=== PATIENT | female | born 1980 | race Caucasian/White ===

== ENCOUNTER 2017-01-29 08:35 | Inpatient (IN) | payer BC, SELFPAY ==
[~2017-01-29] VITALS: Ht 157.5 cm; Wt 85.2 kg
[2017-01-29] MEDS ORDERED: SENOKOT S TAB PO SCH (09:00)
[2017-01-29] MEDS ORDERED: ONDANSETRON 4MG/2ML VIAL (J2405) IV PRN (09:30)
[2017-01-29 11:10] VITALS: BP 127/75
[2017-01-29] MEDS ORDERED: MORPHINE 4 MG/ML 1ML SYRINGE IV ONE (11:30)
[2017-01-29] MEDS ORDERED: PANT40TA2 PO (11:34)
[2017-01-29] MEDS ORDERED: LEVO50TA45 PO (11:37)
[2017-01-29] MEDS ORDERED: FERR324T2 PO (11:37)
[2017-01-29] MEDS ORDERED: SUCR1TAB56 PO (11:37)
[2017-01-29] MEDS ORDERED: POTA0.15 IV (11:45)
[2017-01-29] MEDS ORDERED: HYDR1SYR IV (11:45)
[2017-01-29] MEDS ORDERED: TYLE325T5 PO (11:45)
[2017-01-29] MEDS ORDERED: LEVO1INJ27 IV (11:45)
[2017-01-29] MEDS ORDERED: OXYC1TAB23 PO (11:45)
[2017-01-29] MEDS ORDERED: [UNRECOGNIZED DRUG - CODE] IV (11:45)
[2017-01-29] MEDS ORDERED: NICO14DI20 TD (11:45)
[2017-01-29] MEDS ORDERED: COLA100C PO (11:45)
[2017-01-29 11:54] LABS: BASO % 0.2 % (0.0-1.0); EOS # 0.1 K/mm3 (0.0-0.50); EOS % 0.7 % (0.0-3.0); LARGE UNSTAINED CELL # 0.2 K/mm3 (0.0-0.4); LARGE UNSTAINED CELL % 2.4 % (0.0-4.0); LYMPH # 1.4 K/mm3 (1.5-4.5); LYMPH % 13.2 % (24.0-44.0); MEAN CORPUSCULAR HEMOGLOBIN 26.7 pg (27.0-33.0); MEAN CORPUSCULAR HGB CONC 30.8 g/dl (32.0-36.5); MEAN CORPUSCULAR VOLUME 86.6 fl (80.0-96.0); MONO # 0.5 K/mm3 (0.0-0.8); MONO % 5.8 % (0.0-5.0); NEUTROPHILS # 6.8 K/mm3 (1.8-7.7); NEUTROPHILS % 77.8 % (36.0-66.0); PLATELET COUNT, AUTOMATED 243 k/mm3 (150-450); RED CELL DISTRIBUTION WIDTH 16.4 % (11.5-14.5); WHITE BLOOD COUNT 8.7 K/mm3 (4.0-10.0)
[2017-01-29 12:00] LABS: INR 1.19
[2017-01-29] MEDS: GASTROGRAFIN SOLUTION 30ML PO ONE ×2 (12:00→12:05)
[2017-01-29] MEDS: cefTRIAXone SOD 1 GM in D5W MINI-BAG PLUS 50 ML IV SCH (12:05)
[2017-01-29] MEDS ORDERED: GASTROGRAFIN SOLUTION 30ML (Q9963) PO ONE (12:30)
[2017-01-29] MEDS ORDERED: BISACODYL 10 MG SUPP PR PRN (12:30)
[2017-01-29 12:31] LABS: ALBUMIN 1.6 GM/DL (3.2-5.2); ALBUMIN/GLOBULIN RATIO 0.41 (1.00-1.93); ALKALINE PHOSPHATASE 171 U/L (45-117); ALT/SGPT 19 U/L (12-78); ANION GAP 8 MEQ/L (8-16); AST/SGOT 19 U/L (15-37); BILIRUBIN,TOTAL 0.3 MG/DL (0.2-1.0); BLOOD UREA NITROGEN 3 MG/DL (7-18); CALCIUM LEVEL 7.7 MG/DL (8.5-10.1); CARBON DIOXIDE LEVEL 24 MEQ/L (21-32); CHLORIDE LEVEL 109 MEQ/L (98-107); CREATININE FOR GFR 0.53 MG/DL (0.55-1.02); GLOMERULAR FILTRATION RATE > 60.0 (>60); GLUCOSE, FASTING 91 MG/DL (70-105); POTASSIUM SERUM 3.8 MEQ/L (3.5-5.1); SODIUM LEVEL 141 MEQ/L (136-145); TOTAL PROTEIN 5.5 GM/DL (6.4-8.2)
[2017-01-29] MEDS ORDERED: GASTROGRAFIN SOLUTION 30ML PO ONE (13:00)
[2017-01-29 13:22] LABS: PERCENT SATURATION 3.9 % (13.2-37.4)
[2017-01-29] MEDS: SUCRALFATE 1 GM TAB PO SCH ×3 (13:38→20:55)
[2017-01-29] MEDS: NICOTINE 14 MG/24 HR TRANSDERMAL TD SCH (13:39)
[2017-01-29 14:00] VITALS: BP 121/67
[2017-01-29] MEDS: oxyCODONE 5MG TAB PO PRN ×2 (15:06→20:55)
[2017-01-29] MEDS ORDERED: KETOROLAC 30 MG/ML VIAL (J1885) IV ONE (16:00)
[2017-01-29] MEDS: MORPHINE 4 MG/ML 1ML SYRINGE IV PRN (18:10)
--- NOTE | 2017-01-29 19:37 | HPE ---
DATE OF ADMISSION: 01/29/2017 PRIMARY CARE PROVIDER: JANNETH Leonardo in [facility]. CHIEF COMPLAINT: The patient was transferred from [facility] for possible renal abscess and requirement for specialty care with urology and nephrology. PAST MEDICAL HISTORY: 1. History of obesity, status post gastric bypass surgery in 2009. 2. History of abdominal hernia repair. 3. History of peptic ulcer disease. 4. Kidney stones. 5. Recent influenza about 3 weeks ago. 6. Hypothyroidism. 7. Anemia. 9. Tobacco abuse. HISTORY OF PRESENT ILLNESS: This is a 36-year-old female who has been sick for the past 10 days, initially at home she started with right sided back pain and flank pain, which she attributed to her kidney stones and at home she did pass some small stones, along with some bleeding with urine. However, even after that, the pain did not get better, so she went to [facility]. She was admitted to the [facility] on 01/26/2017. On admission, the patient had a CT scan done and a urine culture sent. The CT scan showed the possibility of pyelonephritis and also chest x-ray done, which showed possibility of right middle lobe infiltrate versus atelectasis, so the patient was started on levofloxacin and doxycycline to cover for her kidneys, as well as lungs. Subsequently, the patient's urine culture came back as Escherichia (E) coli. However, the patient's symptoms did not resolve. The patient continued to have persistent hematuria, persistent pain and for the past 24 hours has been spiking high-grade temperatures. She had a repeat CT scan of the abdomen and pelvis done with contrast of the right kidney. Ultrasound was read as right kidney upper mid pole demonstrates a 2.8 x 2.4 cm solid central region with hyperechoic fluid in the peripheral region, consistent with a renal abscess, fungus ball versus less likely mass. CT scan of the abdomen with contrast was done on 01/28/2017. The preliminary report is read as right pyelonephritis, no hydronephrosis, non obstructing 4 mm left renal stone, no ascites, no free air or hepatomegaly. The patient, on admission, blood work showed WBC of 6.3, hemoglobin 9, platelets 219. UA showed positive nitrite, moderately positive leukocyte esterase, red blood cells too numerous, white blood cells 30 to 50. Urine culture grew E coli greater than 100,000 colony forming units. Basic metabolic panel (BMP) showed sodium 139, potassium 2.8, chloride 106, bicarbonate 22, BUN 24, creatinine 1.2, glucose 84. The patient was started on IV fluids and potassium replacement. On 01/28/2017, the patient's hemoglobin and hematocrit dropped to 7.6, so the patient received 2 units of blood transfusion. The patient also started spiking fever with a maximum temperature (t-max) of 101.6, so was transferred to our hospital for further investigation and management. On my interview, the patient continue to complain of right costovertebral angle pain and right flank pain. She also states that she does have a little bit of hematuria persisting. Denies any nausea or vomiting. Denies any diarrhea. Denies any chest pain, shortness of breath, cough or phlegm. She is being admitted to the hospitalist service for evaluation for a renal abscess, renal mass or renal infarct. PAST SURGICAL HISTORY: 1. Cholecystectomy. 2. Gastric bypass surgery. 3. Surgery for abdominal hernia. ALLERGIES: No known allergies. SOCIAL HISTORY: The patient smokes about a half of a pack per day. Occasionally drinks alcohol. No history of drug abuse. MEDICATIONS: On admission, as from [facility]: - IV Levaquin - doxycycline - IV fluids with potassium - Synthroid - pantoprazole 40 twice a day - sucralfate - nicotine patch REVIEW OF SYSTEMS: All 10-point review of systems are negative except those mentioned in the history of present illness. PHYSICAL EXAMINATION: VITAL SIGNS: Blood pressure 127/75, pulse 95, respiratory rate 18, pulse oximetry 95% on room air. GENERAL: The patient is awake, alert and oriented times three. Lying down in bed in no acute distress. HEENT: Normocephalic, atraumatic. Moist mucous membranes. Anicteric eyes. CHEST: Clear to auscultation. CARDIOVASCULAR: S1, S2 regular. No rub, murmur or gallop. ABDOMEN: Soft, mildly tender in the right flank. Costovertebral angle tenderness on the right. Bowel sounds present. EXTREMITIES: No edema. LABORATORY DATA: WBC 8.7, hemoglobin 8.2, platelets 243. Basic metabolic panel (BMP) is in progress. INR is 1.19. Blood culture, UA and urine culture have bee ordered. MRI of the abdomen with and without contrast has been ordered. ASSESSMENT AND PLAN: This is a 36-year-old female admitted for possible renal abscess. PLAN: 1. For possible renal abscess, we will continue the patient on ceftriaxone. We will send blood culture, urine culture. Last urine culture from 01/27/2017 from [facility] grew Escherichia (E) coli sensitive to ceftriaxone; however, we will also get MRI of the abdomen with and without contrast to evaluate for any mass with necrosis or any infarction with central necrosis or any fungal ball. Giving the findings of the MRI, we will consult urology if required. 2. History of morbid obesity with gastric bypass surgery, stable at this point. 3. History of peptic ulcer disease. We will continue with sucralfate and pantoprazole. 4. Hypothyroidism. We will continue with Synthroid. 5. History of kidney stones. Has nonobstructive 4 mm stone on the left. No issues at this point. 6. Acute on chronic anemia. We will check for iron, vitamin B12 and folate levels. We will monitor hemoglobin and hematocrit. 7. Deep vein thrombosis (DVT) prophylaxis. Thromboembolic compression stockings (TEDS) and sequential compression device (SCD). 8. Gastrointestinal prophylaxis has been ordered. MTDD
[2017-01-29] MEDS: PANTOPRAZOLE 40MG TAB (PROTONIX) PO SCH (20:55)
[2017-01-29] MEDS: SENOKOT S TAB PO SCH (20:55)
[2017-01-29 22:00] VITALS: BP 128/71
[2017-01-30] MEDS: MORPHINE 4 MG/ML 1ML SYRINGE IV PRN ×2 (00:05→05:58)
[2017-01-30] MEDS: oxyCODONE 5MG TAB PO PRN ×2 (03:10→08:55)
[2017-01-30] MEDS: LEVOTHYROXINE 0.05 MG TAB (50 MCG) PO SCH (05:58)
[2017-01-30 06:00] VITALS: BP 132/70
[2017-01-30 06:02] LABS: BASO % 0.1 % (0.0-1.0); EOS % 0.6 % (0.0-3.0); LARGE UNSTAINED CELL # 0.2 K/mm3 (0.0-0.4); LARGE UNSTAINED CELL % 2.5 % (0.0-4.0); LYMPH # 1.2 K/mm3 (1.5-4.5); LYMPH % 15.6 % (24.0-44.0); MEAN CORPUSCULAR HEMOGLOBIN 26.4 pg (27.0-33.0); MEAN CORPUSCULAR HGB CONC 31.2 g/dl (32.0-36.5); MEAN CORPUSCULAR VOLUME 84.7 fl (80.0-96.0); MONO # 0.5 K/mm3 (0.0-0.8); MONO % 6.2 % (0.0-5.0); NEUTROPHILS # 5.7 K/mm3 (1.8-7.7); PLATELET COUNT, AUTOMATED 273 k/mm3 (150-450); RED CELL DISTRIBUTION WIDTH 16.1 % (11.5-14.5); WHITE BLOOD COUNT 7.6 K/mm3 (4.0-10.0)
[2017-01-30 06:19] LABS: ANION GAP 8 MEQ/L (8-16); BLOOD UREA NITROGEN 5 MG/DL (7-18); CALCIUM LEVEL 7.7 MG/DL (8.5-10.1); CARBON DIOXIDE LEVEL 26 MEQ/L (21-32); CHLORIDE LEVEL 105 MEQ/L (98-107); CREATININE FOR GFR 0.56 MG/DL (0.55-1.02); GLOMERULAR FILTRATION RATE > 60.0 (>60); GLUCOSE, FASTING 88 MG/DL (70-105); POTASSIUM SERUM 3.8 MEQ/L (3.5-5.1); SODIUM LEVEL 139 MEQ/L (136-145)
[2017-01-30] MEDS: SUCRALFATE 1 GM TAB PO SCH ×4 (08:53→20:31)
[2017-01-30] MEDS: PANTOPRAZOLE 40MG TAB (PROTONIX) PO SCH ×2 (08:53→20:31)
[2017-01-30] MEDS: SENOKOT S TAB PO SCH ×2 (08:53→20:31)
[2017-01-30] MEDS: NICOTINE 14 MG/24 HR TRANSDERMAL TD SCH (08:54)
[2017-01-30] MEDS ORDERED: PANTOPRAZOLE 40MG TAB (PROTONIX) PO SCH (09:00)
[2017-01-30] MEDS ORDERED: NALBUPHINE HCL 10 MG/ML AMP (J2300) IV PRN (10:00)
[2017-01-30] MEDS ORDERED: diphenhydrAMINE INJ 50MG/ML VIAL (J1200) IV PRN (10:00)
[2017-01-30] MEDS ORDERED: NALOXONE INJ 0.4 MG/1 ML VIAL (J2310) IV PRN (10:00)
[2017-01-30] MEDS ORDERED: EPIDURAL/PCA KEYS XX PRN (10:00)
[2017-01-30] MEDS: MORPHINE PCA 1MG/ML 100ML CADD IV PRN (10:37)
[2017-01-30] MEDS: NS 1,000 ML IV SCH (10:37)
--- NOTE | 2017-01-30 10:57 | IPNPDOC ---
Subjective Date Seen The patient was seen on 01/30/17. Subjective Chief Complaint/HPI The patient is a 36-year-old female admitted with a reason for visit of Renal Abcess. Events since last encounter continues to have severe pain in the right CVA angle, had low grade fever overnight, no chest pain or shortness of breath, has right flank pain , no nausea or vomiting or diarrhea. Objective Physical Examination General Exam: Positive: Alert, No Acute Distress Eye Exam: Positive: Conjunctiva & lids normal, EOMI, PERRLA, Negative: Sclera icteric ENT Exam: Positive: Atraumatic, Mucous membr. moist/pink, Pharynx Normal Chest Exam: Positive: Clear to auscultation, Normal air movement Heart Exam: Positive: Normal S1, Normal S2, Rate Normal, Regular Rhythm, Negative: Murmurs, Rubs Abdomen Exam: Positive: Other (right CVA tenderness , ), Tenderness Extremity Exam: Positive: Normal pulses, Negative: Clubbing, Cyanosis, Edema Skin Exam: Positive: Nl turgor and temperature, Negative: Breakdown, Rash Assessment /Plan Problems (1) Renal abscess Status: Acute Problem Text: will continue the patient on ceftriaxone , urine culture from outside hospital grew e coli discussed with Dr Gonzalez he may be able to put in a drain / or aspirate it . He is going to review the CT scan and US from outside hospital; will consult ID. 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 (2) History of Sonia-en-Y gastric bypass Status: Chronic Problem Text: for morbid obesity in 2009 at [place] (3) Kidney stone on left side Status: Chronic (4) Hypothyroid Status: Chronic (5) Peptic ulcer disease Status: Chronic Problem Text: continue ppi and sucralfate Plan/VTE VTE Prophylaxis Ordered?: Yes VS, I&O, 24H, Luciobonkoby Vital Signs/I&O Vital Signs Date Time Temp Pulse Resp B/P Pulse Ox O2 Delivery O2 Flow Rate FiO2 01/30/17 09:25 18 Room Air 01/30/17 06:00 100.5 113 132/70 94 I&O- Last 24 Hours up to 6 AM 01/30/17 06:00 Intake Total 2260 ml Output Total 950 ml Balance 1310 ml Laboratory Data 24H LABS Laboratory Tests 2 01/29/17 11:42: Prothromb Time International Ratio 1.19, Prothrombin Time 15.2H 01/29/17 11:43: Blood Urea Nitrogen 3L, Creatinine 0.53L, Sodium Level 141, Potassium Level 3.8 , Chloride Level 109H, Carbon Dioxide Level 24, Calcium Level 7.7L, Aspartate Amino Transf (AST/SGOT) 19, Alanine Aminotransferase (ALT/SGPT) 19, Alkaline Phosphatase 171H, Total Bilirubin 0.3, Total Protein 5.5L, Albumin 1.6L, Albumin /Globulin Ratio 0.41L, Anion Gap 8, White Blood Count 8.7, Red Blood Count 3.09L , Hemoglobin 8.2L, Hematocrit 26.7L, Mean Corpuscular Volume 86.6, Mean Corpuscular Hemoglobin 26.7L, Mean Corpuscular Hemoglobin Concent 30.8L, Red Cell Distribution Width 16.4H, Platelet Count 243, Neutrophils (%) (Auto) 77.8H , Lymphocytes (%) (Auto) 13.2L, Monocytes (%) (Auto) 5.8H, Eosinophils (%) (Auto ) 0.7, Basophils (%) (Auto) 0.2, Neutrophils # (Auto) 6.8, Lymphocytes # (Auto) 1.4L, Monocytes # (Auto) 0.5, Eosinophils # (Auto) 0.1, Basophils # (Auto) 0.0, Glomerular Filtration Rate > 60.0, Large Unclassified Cells # 0.2, Large Unclassified Cells % 2.4 01/29/17 12:39: Ferritin 152, Iron Level 8L, Total Iron Binding Capacity 207L, Transferrin % Saturation 3.9L 01/29/17 13:32: Urine Amorphous Sediment , Urine Appearance CLEAR, Urine Color YELLOW, Urine pH 6.0, Urine Specific [place] 1.008, Urine Protein NEGATIVE, Urine Glucose (UA) NEGATIVE, Urine Ketones NEGATIVE, Urine Urobilinogen 0.2, Urine Bilirubin NEGATIVE, Urine Leukocyte Esterase TRACEH, Urine Bacteria (Auto) 1+H, Urine Blood 3+H, Urine Calcium Carbonate Cryst(Auto) , Urine Calcium Oxalate Cryst ( Auto) , Urine Calcium Phosphate Nicole (Auto) , Urine Cellular Casts , Urine Cystine Crystals , Urine Granular Casts (Auto) , Urine Hyaline Casts (Auto) 0, Urine Leucine Crystals , Urine Mucus (Auto) SMALL, Urine Nitrite NEGATIVE, Urine Oval Fat Bodies (Auto) , Urine RBC (Auto) TNTCH, Urine Renal Epithelial Cells , Urine Sperm (Auto) , Urine Squamous Epithelial Cells 4, Urine Transitional Epithelial Cells , Urine Trichomonas (Auto) , Urine Triple Phosphate Cryst (Auto) , Urine Tyrosine Crystals , Urine Uric Acid Crystals ( Auto) , Urine WBC (Auto) 21H, Urine Waxy Casts (Auto) , Urine Yeast-Like Cells ( Auto) 01/30/17 05:36: Anion Gap 8, White Blood Count 7.6, Red Blood Count 3.34L, Hemoglobin 8.8L, Hematocrit 28.3L, Mean Corpuscular Volume 84.7, Mean Corpuscular Hemoglobin 26.4L, Mean Corpuscular Hemoglobin Concent 31.2L, Red Cell Distribution Width 16.1H, Platelet Count 273, Neutrophils (%) (Auto) 75.0H, Lymphocytes (%) (Auto) 15.6L, Monocytes (%) (Auto) 6.2H, Eosinophils (%) (Auto) 0.6, Basophils (%) ( Auto) 0.1, Neutrophils # (Auto) 5.7, Lymphocytes # (Auto) 1.2L, Monocytes # ( Auto) 0.5, Eosinophils # (Auto) 0.0, Basophils # (Auto) 0.0, Blood Urea Nitrogen 5#L, Creatinine 0.56, Sodium Level 139, Potassium Level 3.8, Chloride Level 105, Carbon Dioxide Level 26, Calcium Level 7.7L, Glomerular Filtration Rate > 60.0, Large Unclassified Cells # 0.2, Large Unclassified Cells % 2.5 CBC/BMP Laboratory Tests 01/29/17 11:43 Calcium Level 7.7 L, Aspartate Amino Transf (AST/SGOT) 19, Alanine Aminotransferase (ALT/SGPT) 19, Alkaline Phosphatase 171 H, Total Bilirubin 0.3 , Total Protein 5.5 L, Albumin 1.6 L, Red Blood Count 3.09 L, Mean Corpuscular Volume 86.6, Mean Corpuscular Hemoglobin 26.7 L, Mean Corpuscular Hemoglobin Concent 30.8 L, Red Cell Distribution Width 16.4 H, Neutrophils (%) (Auto) 77.8 H, Lymphocytes (%) (Auto) 13.2 L, Monocytes (%) (Auto) 5.8 H, Eosinophils (%) ( Auto) 0.7, Basophils (%) (Auto) 0.2, Neutrophils # (Auto) 6.8, Lymphocytes # ( Auto) 1.4 L, Monocytes # (Auto) 0.5, Eosinophils # (Auto) 0.1, Basophils # (Auto ) 0.0 01/30/17 05:36 Calcium Level 7.7 L, Red Blood Count 3.34 L, Mean Corpuscular Volume 84.7, Mean Corpuscular Hemoglobin 26.4 L, Mean Corpuscular Hemoglobin Concent 31.2 L, Red Cell Distribution Width 16.1 H, Neutrophils (%) (Auto) 75.0 H, Lymphocytes (%) ( Auto) 15.6 L, Monocytes (%) (Auto) 6.2 H, Eosinophils (%) (Auto) 0.6, Basophils (%) (Auto) 0.1, Neutrophils # (Auto) 5.7, Lymphocytes # (Auto) 1.2 L, Monocytes # (Auto) 0.5, Eosinophils # (Auto) 0.0, Basophils # (Auto) 0.0 Microbiology Microbiology 01/29/17 Blood Culture, Received Pending 01/29/17 Urine Culture - Final, Complete JUSTEN ALBRIGHT MD Jan 30, 2017 10:57
[2017-01-30] MEDS: cefTRIAXone SOD 1 GM in D5W MINI-BAG PLUS 50 ML IV SCH ×4 (12:26→23:44)
[2017-01-30] MEDS: ACETAMINOPHEN 500 MG TAB PO PRN (13:36)
[2017-01-30 13:43] VITALS: BP 107/51
[2017-01-30 18:00] VITALS: BP 122/61
[2017-01-30 22:00] VITALS: BP 101/58
[2017-01-31 02:00] VITALS: BP 114/71
[2017-01-31 06:00] VITALS: BP 124/60
[2017-01-31] MEDS: ACETAMINOPHEN 500 MG TAB PO PRN ×2 (06:10→16:29)
[2017-01-31] MEDS: LEVOTHYROXINE 0.05 MG TAB (50 MCG) PO SCH (06:10)
[2017-01-31 06:18] LABS: BASO % 0.3 % (0.0-1.0); EOS # 0.1 K/mm3 (0.0-0.50); EOS % 1.1 % (0.0-3.0); LARGE UNSTAINED CELL # 0.1 K/mm3 (0.0-0.4); LARGE UNSTAINED CELL % 1.4 % (0.0-4.0); LYMPH # 1.4 K/mm3 (1.5-4.5); LYMPH % 16.6 % (24.0-44.0); MEAN CORPUSCULAR HEMOGLOBIN 26.5 pg (27.0-33.0); MEAN CORPUSCULAR VOLUME 85.4 fl (80.0-96.0); MONO # 0.4 K/mm3 (0.0-0.8); MONO % 5.1 % (0.0-5.0); NEUTROPHILS # 6.2 K/mm3 (1.8-7.7); NEUTROPHILS % 75.5 % (36.0-66.0); PLATELET COUNT, AUTOMATED 354 k/mm3 (150-450); RED CELL DISTRIBUTION WIDTH 16.1 % (11.5-14.5); WHITE BLOOD COUNT 8.2 K/mm3 (4.0-10.0)
[2017-01-31 06:29] LABS: ANION GAP 7 MEQ/L (8-16); BLOOD UREA NITROGEN 6 MG/DL (7-18); CALCIUM LEVEL 8.1 MG/DL (8.5-10.1); CARBON DIOXIDE LEVEL 29 MEQ/L (21-32); CHLORIDE LEVEL 105 MEQ/L (98-107); CREATININE FOR GFR 0.53 MG/DL (0.55-1.02); GLOMERULAR FILTRATION RATE > 60.0 (>60); GLUCOSE, FASTING 88 MG/DL (70-105); POTASSIUM SERUM 3.7 MEQ/L (3.5-5.1); SODIUM LEVEL 141 MEQ/L (136-145)
[2017-01-31] MEDS: SENOKOT S TAB PO SCH ×2 (09:00→20:30)
[2017-01-31] MEDS: PANTOPRAZOLE 40MG TAB (PROTONIX) PO SCH ×2 (09:00→20:30)
[2017-01-31] MEDS: SUCRALFATE 1 GM TAB PO SCH ×4 (09:00→20:30)
[2017-01-31] MEDS: NS 1,000 ML IV SCH ×2 (09:45→09:54)
[2017-01-31] MEDS: NICOTINE 14 MG/24 HR TRANSDERMAL TD SCH (09:55)
[2017-01-31] MEDS: MORPHINE PCA 1MG/ML 100ML CADD IV PRN (09:55)
[2017-01-31 10:00] VITALS: BP 103/51
--- NOTE | 2017-01-31 11:00 | IPNPDOC ---
Subjective Date Seen The patient was seen on 01/31/17. Subjective Chief Complaint/HPI The patient is a 36-year-old female admitted with a reason for visit of Renal Abcess. Events since last encounter pt seen and examined, was sitting in bed with mother at bedside, she was asking about the time of her procedure. she states she is still having right sided flank pain that is present all the time. no pain with urination, she states she never had pain with urination only dark colored urine.had a morning temp of 100.6 but it was skin temp Objective Physical Examination General Exam: Positive: Alert, No Acute Distress Eye Exam: Positive: Conjunctiva & lids normal, EOMI, PERRLA, Negative: Sclera icteric ENT Exam: Positive: Atraumatic, Mucous membr. moist/pink, Pharynx Normal Chest Exam: Positive: Clear to auscultation, Normal air movement Heart Exam: Positive: Normal S1, Normal S2, Rate Normal, Regular Rhythm, Negative: Murmurs, Rubs Abdomen Exam: Positive: Other (right CVA tenderness , ), Tenderness Extremity Exam: Positive: Normal pulses, Negative: Clubbing, Cyanosis, Edema Skin Exam: Positive: Nl turgor and temperature, Negative: Breakdown, Rash Assessment /Plan Problems (1) Renal abscess Status: Acute Problem Text: * continue the patient on ceftriaxone , * urine culture from outside hospital grew e coli, repeat culture here was negative * Dr Gonzalez will take pt for procedure later today * continue morphine pump for pain control * will continue to monitor CRP and ESR * temp only core. (2) History of Sonia-en-Y gastric bypass Status: Chronic Problem Text: * for morbid obesity * in 2009 at [place] * continue Carafate and protonix bid (3) Kidney stone on left side Status: Chronic (4) Hypothyroid Status: Chronic Problem Text: * continue Synthroid (5) Peptic ulcer disease Status: Chronic Problem Text: continue ppi and sucralfate Plan/VTE VTE Prophylaxis Ordered?: Yes VS, I&O, 24H, Fishbone Vital Signs/I&O Vital Signs Date Time Temp Pulse Resp B/P Pulse Ox O2 Delivery O2 Flow Rate FiO2 01/31/17 06:00 100.9 95 18 124/60 91 Room Air I&O- Last 24 Hours up to 6 AM 01/31/17 06:00 Intake Total 1398 ml Output Total 1350 ml Balance 48 ml Laboratory Data 24H LABS Laboratory Tests 2 01/31/17 05:52: Anion Gap 7L, White Blood Count 8.2, Red Blood Count 3.46L, Hemoglobin 9.2L, Hematocrit 29.6L, Mean Corpuscular Volume 85.4, Mean Corpuscular Hemoglobin 26.5L, Mean Corpuscular Hemoglobin Concent 31.0L, Red Cell Distribution Width 16.1H, Platelet Count 354, Neutrophils (%) (Auto) 75.5H, Lymphocytes (%) (Auto) 16.6L, Monocytes (%) (Auto) 5.1H, Eosinophils (%) (Auto) 1.1, Basophils (%) ( Auto) 0.3, Neutrophils # (Auto) 6.2, Lymphocytes # (Auto) 1.4L, Monocytes # ( Auto) 0.4, Eosinophils # (Auto) 0.1, Basophils # (Auto) 0.0, Blood Urea Nitrogen 6L, Creatinine 0.53L, Sodium Level 141, Potassium Level 3.7, Chloride Level 105, Carbon Dioxide Level 29, Calcium Level 8.1L, Glomerular Filtration Rate > 60.0, Large Unclassified Cells # 0.1, Large Unclassified Cells % 1.4 CBC/BMP Laboratory Tests 01/31/17 05:52 Calcium Level 8.1 L, Red Blood Count 3.46 L, Mean Corpuscular Volume 85.4, Mean Corpuscular Hemoglobin 26.5 L, Mean Corpuscular Hemoglobin Concent 31.0 L, Red Cell Distribution Width 16.1 H, Neutrophils (%) (Auto) 75.5 H, Lymphocytes (%) ( Auto) 16.6 L, Monocytes (%) (Auto) 5.1 H, Eosinophils (%) (Auto) 1.1, Basophils (%) (Auto) 0.3, Neutrophils # (Auto) 6.2, Lymphocytes # (Auto) 1.4 L, Monocytes # (Auto) 0.4, Eosinophils # (Auto) 0.1, Basophils # (Auto) 0.0 Microbiology Microbiology 01/29/17 Blood Culture - Preliminary, Resulted No growth after 24 hours . All specim... 01/29/17 Urine Culture - Final, Complete MIREYA BEASLEY DO Jan 31, 2017 11:00
[2017-01-31] MEDS: cefTRIAXone SOD 1 GM in D5W MINI-BAG PLUS 50 ML IV SCH (12:08)
[2017-01-31] MEDS ORDERED: ISOVUE-300 61% 50ML VIAL (Q9967) As Ordered ONE (12:46)
[2017-01-31] MEDS ORDERED: LIDOCAINE 2% MDV 20 ML VIAL As Ordered ONE (14:09)
[2017-01-31] MEDS ORDERED: SODIUM BICARBONATE 8.4% INJ 50MEQ 50 ML VIAL As Ordered ONE (14:10)
[2017-01-31] MEDS ORDERED: LIDOCAINE W/EPINEPHRINE 1% 20ML VIAL As Ordered ONE (14:13)
[2017-01-31 15:20] VITALS: BP 127/79
--- NOTE | 2017-01-31 16:38 | IPNPDOC ---
Text Note Date of Service The patient was seen on 01/31/17. NOTE Infectious Disease Progress Note Subjective: Ms. Lau is seen today sitting in bed comfortably and about to order dinner. She just returned from to have a drain placed for her multiple renal abscesses. She states that she is feeling very chilled right now and thinks that she may have a fever. 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 Objective: Vitals: Tmax: 100.9 Pulse: 95 RR: 18 BP: 127/79 Pulse Oximetry: 96 on room air Physical Exam: General: Awake, alert, oriented. Sitting comfortably in bed. HEENT: Normocephalic, Atraumatic, mucous membranes moist Cardiac: Regular rate and rhythm, no murmurs, no gallops Respiratory: Clear to Auscultation Bilaterally, no wheezes, no rhonchi Abdomen: Soft, mildly tender to palpation in right upper quadrant, no rigidity, no rebound Laboratory: WBC: 8.2 Hgb: 9.2 Hct: 29.6 Platelets: 354 Na: 141 K: 3.7 Cl: 105 CO2: 29 BUN: 6 Creatinine: 0.53 glucose: 88 Urine Culture from [facility]: E. Coli Urine Culture here: Negative Blood culture: negative at 24 hours Abscess gram stain: no organisms Abscess fungal smear and culture, bacterial anaerobic and aerobic cultures pending. Imaging: Outside CT scan from [facility] shows multiple renal abscesses and pyelonephritis Assessment/Plan 1: Right sided pyelonephritis and multiple renal abscesses: Drain placed today, will continue on ceftriaxone 1g Q12 IV pending culture and smear results from drainage. IgG, IgG subclasses, IgA, and IgM levels will be obtained to determine if there is an underlying immune deficiency that allowed the formation of multiple renal abscesses. Will also obtain HIV 1&2 antibodies to rule out immune deficiency. GME ATTESTATION GME ATTESTATION My preceptor for this patient encounter was physically present in the building during the encounter and was fully available. As needed, all aspects of the patient interview, examination, medical decision making process, and medical care plan development were reviewed and approved by the preceptor. Preceptor is aware and concurs with the plan as stated in the body of this note and will attest to such by his/her cosignature. HECTOR MACDONALD DO Jan 31, 2017 16:38
--- NOTE | 2017-01-31 17:10 | REPKIM ---
HISTORY: Patient presents with right sided pyelonephritis and multiple renal abscesses as documented by the recent CT study. The referring service has asked abscess(es) aspiration possible drainage catheter placement. PROCEDURE: 1. Ultrasound Right Kidney 2. Mid lateral renal abscess drainage catheter placement and sinogram 3. Lower pole renal abscess(es) aspiration INTERVENTIONALIST: Dr. Rigo Gonzalez MEDICATIONS: Local Lidocaine. Patient also used NOTE SPECIALIST for pain control CONTRAST: 10 mL Isovue 300 EBL: less than 5 mL FLUORO TIME: 1.4 minutes DEVICE USED: 8.5 F Gross Powers Catheter Lot# [id number] PROCEDURE: After the risks and benefits of the procedure were explained to the patient and all questions were answered, informed written consent was obtained. A timeout procedure was performed prior to the start of the procedure to confirm patient identity. The patient was placed in the prone position and the right flank prepped and draped in the usual sterile fashion. Ultrasound of the right kidney showed an abscess cavity of 3.8 cm in mid lateral aspect of the kidney. This also showed multiple small abscesses in the lower pole of the kidney. Lidocaine was administered into the subcutaneous and deep tissues for local anesthesia. Using ultrasound guidance, a 21-gauge Accustick needle was advanced to the targeted mid lateral abnormal fluid collection/cavity. An Accustick catheter was then introduced over a guidewire. Initial aspirate revealed purulent discharges consistent with an abscess. A sample of the fluid sent for c/s. Using this access, an 8.5-Tamazight Gross Powers drainage catheter was then advanced over a wire. Its distal loop was formed and locked in the abnormal fluid collection/cavity Approximately 10 mL of fluid was aspirated. Contrast was gently hand injected and images were obtained. This showed the drainage catheter in a satisfactory course and position. No evidence of contrast leak or fistulous communication identified with the adjacent collecting system. The drainage catheter was then secured to the skin using the Revolution device. The drainage catheter was flushed and connected to a gravity drainage bag. Under ultrasound guidance, the dominant lower pole abscesses were then accessed using an 18-gauge D and K interpriseseh centesis needle after local anesthetic. Approximately 4 mL of purulent discharge was manually removed. The centesis catheter was then removed. A sterile dressing was applied. The patient tolerated the procedure well with no immediate complications. This procedure was performed using ultrasound and fluoroscopy. Dr. Gonzalez was present. IMPRESSION: Right sided pyelonephritis complicated with multiple renal abscesses. Successful placement of 8.5F percutaneous drainage catheter into the 3.8cm mid lateral renal abscess as discussed above. Aspiration of lower pole smaller renal abscesses also performed. A sample of the purulent fluid sent for c/s. Continue supportive care and antibiotics. cc: MD Bret Shah DO Marylene J Duah, MD MTDD
[2017-01-31 18:00] VITALS: BP 116/62
[2017-01-31 18:43] LABS: IMMUNOGLOBULIN G 793 MG/DL (681-1648); IMMUNOGLOBULIN M 103 MG/DL (40-230)
[2017-01-31 22:00] VITALS: BP 112/58
[2017-02-01] MEDS: ACETAMINOPHEN 500 MG TAB PO PRN ×2 (00:14→06:31)
[2017-02-01] MEDS: NS 1,000 ML IV SCH ×2 (00:14→11:15)
[2017-02-01] MEDS: cefTRIAXone SOD 1 GM in D5W MINI-BAG PLUS 50 ML IV SCH ×2 (00:14→11:15)
[2017-02-01 06:00] VITALS: BP 123/77
[2017-02-01] MEDS: LEVOTHYROXINE 0.05 MG TAB (50 MCG) PO SCH (06:31)
[2017-02-01 07:21] LABS: ANION GAP 6 MEQ/L (8-16); BLOOD UREA NITROGEN 5 MG/DL (7-18); CALCIUM LEVEL 7.6 MG/DL (8.5-10.1); CARBON DIOXIDE LEVEL 30 MEQ/L (21-32); CHLORIDE LEVEL 104 MEQ/L (98-107); CREATININE FOR GFR 0.56 MG/DL (0.55-1.02); GLOMERULAR FILTRATION RATE > 60.0 (>60); GLUCOSE, FASTING 92 MG/DL (70-105); POTASSIUM SERUM 3.2 MEQ/L (3.5-5.1); SODIUM LEVEL 140 MEQ/L (136-145)
[2017-02-01] MEDS: MORPHINE PCA 1MG/ML 100ML CADD IV PRN (07:23)
[2017-02-01 07:31] LABS: BASO % 0.3 % (0.0-1.0); EOS % 0.3 % (0.0-3.0); LARGE UNSTAINED CELL % 1.1 % (0.0-4.0); LYMPH # 0.8 K/mm3 (1.5-4.5); LYMPH % 13.4 % (24.0-44.0); MEAN CORPUSCULAR HEMOGLOBIN 26.9 pg (27.0-33.0); MEAN CORPUSCULAR HGB CONC 31.6 g/dl (32.0-36.5); MONO % 5.6 % (0.0-5.0); NEUTROPHILS # 4.6 K/mm3 (1.8-7.7); NEUTROPHILS % 79.2 % (36.0-66.0); PLATELET COUNT, AUTOMATED 343 k/mm3 (150-450); RED CELL DISTRIBUTION WIDTH 15.9 % (11.5-14.5); WHITE BLOOD COUNT 5.8 K/mm3 (4.0-10.0)
[2017-02-01 07:32] LABS: LARGE UNSTAINED CELL # 0.1 K/mm3 (0.0-0.4); MONO # 0.3 K/mm3 (0.0-0.8)
[2017-02-01 08:24] LABS: ERYTHROCYTE SEDIMENTATION RATE 108 mm/hr (0-20)
[2017-02-01] MEDS: SUCRALFATE 1 GM TAB PO SCH ×4 (09:11→20:22)
[2017-02-01] MEDS: NICOTINE 14 MG/24 HR TRANSDERMAL TD SCH (09:11)
[2017-02-01] MEDS: PANTOPRAZOLE 40MG TAB (PROTONIX) PO SCH ×2 (09:11→20:22)
[2017-02-01] MEDS: SENOKOT S TAB PO SCH ×2 (09:11→20:22)
[2017-02-01 09:18] LABS: FOLATE 3.5 NG/ML (>5.4)
[2017-02-01 10:00] VITALS: BP 98/55
[2017-02-01] MEDS ORDERED: POTASSIUM CHLORIDE 10 MEQ SR TABLET PO ONE (11:00)
--- NOTE | 2017-02-01 11:34 | CR ---
DATE OF CONSULTATION: 01/31/2017 REQUESTING PHYSICIAN: Dr. Appiah for evaluation of renal abscess with urine culture positive for E-Coli. HISTORY OF PRESENT ILLNESS: Ms. Lau is a 36-year-old female with a history of morbid obesity status post gastric bypass in 2009, who initially got sick about 10 days prior to admission. She started with right-sided back pain, flank pain that she related to kidney stones. The patient had some hematuria but no dysuria. On 01/26/2017, the pain got worse. She went to [facility] and had a CT, which showed a possibility of pyelonephritis. She also had a chest x-ray which showed a possible right middle lobe infiltrate versus atelectasis. The patient initially was treated with levofloxacin as well as doxycycline for possible pneumonia. Urine culture was positive for Escherichia (E) coli. It was sensitive to levofloxacin, only resistant to ampicillin and Bactrim. The patient's symptoms did not resolve. She continued with fever, hematuria. She had a repeat CT scan of the abdomen and pelvis with contrast and an ultrasound, which showed a solid central lesion with hyperechoic fluid measuring 2.8 x 2.4 cm. There was a question of a fungus ball. There was a nonobstructing 4 mm left renal stone with no ascites. The patient's white count had been normal. Urinalysis had many white cells and urine culture was positive for E. coli. PAST MEDICAL HISTORY: Morbid obesity. History of peptic ulcer disease with bleeding ulcers at the gastric anastomosis. PAST SURGICAL HISTORY: Cholecystectomy. Gastric bypass. Multiple abdominal hernia repair. Surgery was done by Dr. Riki Bell in [place]. ALLERGIES: No known drug allergies. SOCIAL HISTORY: She smokes about a half pack a day. Drinks socially. No history of drug use. She is noncompliant with medications and vitamins. MEDICATIONS: - morphine [employer] pump - Benadryl 12.5 mg IV every 4 hours as needed - naloxone as needed - levothyroxine 0.05 mg by mouth daily - Protonix 40 mg by mouth twice a day - Senokot one tablet by mouth twice a day - Carafate 1 gram by mouth four times daily - Colace as needed - Rocephin 1 gram IV every 12 hours - nicotine patch daily LABS: White count is 8.2, hemoglobin 9.2, hematocrit 29.6, platelets 354, 75% neutrophils, 16% lymphocytes, 5% monocytes. Sodium 141, potassium 3.7, chloride 105, bicarbonate 29, BUN 6, creatinine 0.53, glucose 88, calcium 8.1, iron 8, TIBC 207, iron saturation 3.9%, ferritin 152, AST 19, ALT 19, alkaline phosphatase 171, CRP 11.5, albumin 1.6. Vitamin B12 and folate are pending. Urine culture 01/29/2017 was no growth. Blood culture was negative. Urinalysis had 21 white cells and many red cells. ON PHYSICAL EXAM, Obese female in no acute distress. Heart: Normal S1, S2. No murmurs, rubs, or gallops. Lungs: Are clear. No wheezes, rales, or rhonchi. Abdomen: Is soft, obese, nontender with right costovertebral angle tenderness (CVA) tenderness. Extremities: No clubbing, cyanosis, or edema. Skin: Has multiple tattoos but no rashes. Oropharynx is clear with no thrush. No lesions. Neurologic: Exam is normal. IMPRESSION: This is a 36-year-old female with 10-day history of right-sided flank pain with persistent fever and what seems like a renal abscess and a kidney stone. Her urine culture was positive for E. coli sensitive to levofloxacin and Rocephin. The patient has been on appropriate antibiotics for the past 5 days and has had persistent fever and severe pain. She also had a gastric bypass Sonia-en-Y surgery and has severe iron deficiency and hypogammaglobulinemia. Antibiotics are appropriate. The question is whether the patient needs the renal abscess drained if she has persistent fever and persistent pain. PLAN: Will discuss the case with Dr. Rigo Gonzalez, who was not available today. Dr. Appiah did call him and he reviewed the films before he recommends a CT-guided biopsy to rule out other possible etiologies, possible co-infection with other organism other than the E. coli that is not being covered. Once the patient is afebrile and stable, she could be switched back to levofloxacin 750 mg every 24 hours. Usually indications for renal abscess drainage would be if the site of the abscess is more than 5 cm then the abscess would need to be drained percutaneously. Otherwise, antibiotics should be adequate. But if patient has persistent fevers after 5 days of appropriate antibiotics in spite of appropriate treatment, the patient probably should have a percutaneous drainage as well.
[2017-02-01 14:00] VITALS: BP 124/60
[2017-02-01 14:45] LABS: HIV SCREEN CENTAUR NEGATIVE (NEGATIVE)
--- NOTE | 2017-02-01 15:08 | IPNPDOC ---
Subjective Date Seen The patient was seen on 02/01/17. Subjective Chief Complaint/HPI The patient is a 36-year-old female admitted with a reason for visit of Renal Abcess. Events since last encounter pt seen and examined, feels better but still using her morphine [employer], she had fever yesterday after procedure, no other events overnight Objective Physical Examination General Exam: Positive: Alert, No Acute Distress Eye Exam: Positive: Conjunctiva & lids normal, EOMI, PERRLA, Negative: Sclera icteric ENT Exam: Positive: Atraumatic, Mucous membr. moist/pink, Pharynx Normal Chest Exam: Positive: Clear to auscultation, Normal air movement Heart Exam: Positive: Normal S1, Normal S2, Rate Normal, Regular Rhythm, Negative: Murmurs, Rubs Abdomen Exam: Positive: Other (right CVA tenderness , ), Tenderness Extremity Exam: Positive: Normal pulses, Negative: Clubbing, Cyanosis, Edema Skin Exam: Positive: Nl turgor and temperature, Negative: Breakdown, Rash Assessment /Plan Problems (1) Renal abscess Status: Acute Problem Text: * continue the patient on ceftriaxone , * urine culture from outside hospital grew e coli, repeat culture here was negative * Dr Gonzalez took pt for drainage and aspiration of abscess, cultures pending * continue morphine pump for pain control * will continue to monitor CRP and ESR * temp only core * tmax was 101.3 yesterday (2) History of Sonia-en-Y gastric bypass Status: Chronic Problem Text: * for morbid obesity * in 2009 at [place] * continue Carafate and protonix bid (3) Kidney stone on left side Status: Chronic (4) Hypothyroid Status: Chronic Problem Text: * continue Synthroid (5) Peptic ulcer disease Status: Chronic Problem Text: continue ppi and sucralfate Plan/VTE VTE Prophylaxis Ordered?: Yes VS, I&O, 24H, Fishbone Vital Signs/I&O Vital Signs Date Time Temp Pulse Resp B/P Pulse Ox O2 Delivery O2 Flow Rate FiO2 02/01/17 10:00 97.2 77 17 98/55 92 Room Air I&O- Last 24 Hours up to 6 AM 02/01/17 06:00 Intake Total 2570 ml Output Total 1400 ml Balance 1170 ml Laboratory Data 24H LABS Laboratory Tests 2 01/31/17 16:37: HIV Antigen/Antibody Combo Qual NEGATIVE, Immunoglobulin A 369.0, Immunoglobulin G 793, Immunoglobulin M 103 02/01/17 06:47: Anion Gap 6L, White Blood Count 5.8, Red Blood Count 3.34L, Hemoglobin 9.0L, Hematocrit 28.4L, Mean Corpuscular Volume 85.0, Mean Corpuscular Hemoglobin 26.9L, Mean Corpuscular Hemoglobin Concent 31.6L, Red Cell Distribution Width 15.9H, Platelet Count 343, Neutrophils (%) (Auto) 79.2H, Lymphocytes (%) (Auto) 13.4L, Monocytes (%) (Auto) 5.6H, Eosinophils (%) (Auto) 0.3, Basophils (%) ( Auto) 0.3, Neutrophils # (Auto) 4.6, Lymphocytes # (Auto) 0.8L, Monocytes # ( Auto) 0.3, Eosinophils # (Auto) 0.0, Basophils # (Auto) 0.0, C-Reactive Protein , Quantitative 10.40H, Blood Urea Nitrogen 5L, Creatinine 0.56, Sodium Level 140 , Potassium Level 3.2L, Chloride Level 104, Carbon Dioxide Level 30, Calcium Level 7.6L, Erythrocyte Sedimentation Rate 108H, Glomerular Filtration Rate > 60.0, Large Unclassified Cells # 0.1, Large Unclassified Cells % 1.1 CBC/BMP Laboratory Tests 02/01/17 06:47 Calcium Level 7.6 L, Red Blood Count 3.34 L, Mean Corpuscular Volume 85.0, Mean Corpuscular Hemoglobin 26.9 L, Mean Corpuscular Hemoglobin Concent 31.6 L, Red Cell Distribution Width 15.9 H, Neutrophils (%) (Auto) 79.2 H, Lymphocytes (%) ( Auto) 13.4 L, Monocytes (%) (Auto) 5.6 H, Eosinophils (%) (Auto) 0.3, Basophils (%) (Auto) 0.3, Neutrophils # (Auto) 4.6, Lymphocytes # (Auto) 0.8 L, Monocytes # (Auto) 0.3, Eosinophils # (Auto) 0.0, Basophils # (Auto) 0.0 Microbiology Microbiology 01/31/17 Blood Culture, Received Pending 01/31/17 Blood Culture, Received Pending 01/29/17 Blood Culture - Preliminary, Resulted No Growth after 72 hours. All specime... 3/28/17 Fungal Smear, Received Pending 01/31/17 Fungal Culture, Received Pending 01/31/17 Urine Culture - Final, Complete 01/31/17 Anaerobic Culture, Received Pending 01/29/17 Urine Culture - Final, Complete 01/31/17 Gram Stain - Final, Resulted 01/31/17 Abscess Culture, Resulted Pending MIREYA BEASLEY DO Feb 01, 2017 15:08
[2017-02-01 18:00] VITALS: BP 115/69
[2017-02-01 22:00] VITALS: BP 120/69
[2017-02-02] VITALS (11 sets, daily range): BP systolic 93–126; BP diastolic 49–70
[2017-02-02] MEDS: cefTRIAXone SOD 1 GM in D5W MINI-BAG PLUS 50 ML IV SCH ×3 (00:22→23:31)
[2017-02-02] MEDS: ACETAMINOPHEN 500 MG TAB PO PRN (03:03)
[2017-02-02] MEDS ORDERED: IBUPROFEN 800 MG TAB PO PRN (04:15)
[2017-02-02] MEDS: NS 1,000 ML IV SCH ×2 (04:27→13:40)
[2017-02-02] MEDS: LEVOTHYROXINE 0.05 MG TAB (50 MCG) PO SCH (06:13)
[2017-02-02] MEDS: MORPHINE PCA 1MG/ML 100ML CADD IV PRN (06:13)
[2017-02-02] MEDS ORDERED: ASPIRIN 325 MG TAB PO ONE (07:00)
[2017-02-02 07:09] LABS: BASO % 0.4 % (0.0-1.0); EOS # 0.1 K/mm3 (0.0-0.50); EOS % 1.3 % (0.0-3.0); LARGE UNSTAINED CELL # 0.1 K/mm3 (0.0-0.4); LYMPH # 1.3 K/mm3 (1.5-4.5); MEAN CORPUSCULAR HEMOGLOBIN 26.1 pg (27.0-33.0); MEAN CORPUSCULAR HGB CONC 30.1 g/dl (32.0-36.5); MEAN CORPUSCULAR VOLUME 86.5 fl (80.0-96.0); MONO # 0.4 K/mm3 (0.0-0.8); MONO % 6.8 % (0.0-5.0); NEUTROPHILS # 4.4 K/mm3 (1.8-7.7); NEUTROPHILS % 69.5 % (36.0-66.0); PLATELET COUNT, AUTOMATED 381 k/mm3 (150-450); RED CELL DISTRIBUTION WIDTH 15.6 % (11.5-14.5); WHITE BLOOD COUNT 6.4 K/mm3 (4.0-10.0)
[2017-02-02 07:22] LABS: ANION GAP 7 MEQ/L (8-16); BLOOD UREA NITROGEN 4 MG/DL (7-18); CALCIUM LEVEL 7.5 MG/DL (8.5-10.1); CARBON DIOXIDE LEVEL 29 MEQ/L (21-32); CHLORIDE LEVEL 104 MEQ/L (98-107); CREATININE FOR GFR 0.54 MG/DL (0.55-1.02); GLOMERULAR FILTRATION RATE > 60.0 (>60); GLUCOSE, FASTING 102 MG/DL (70-105); POTASSIUM SERUM 3.2 MEQ/L (3.5-5.1); SODIUM LEVEL 140 MEQ/L (136-145)
[2017-02-02] MEDS ORDERED: VANCOMYCIN HCL 750 MG, VIAL MATE ADAPTER 1 EACH in D5W 250 ML IV SCH (07:30)
--- NOTE | 2017-02-02 08:28 | REP ---
PA and lateral chest: Comparisons 01/27/2017. There is minor discoid atelectasis inferiorly in the left lung. The lung ring are otherwise clear. Cardiac size is upper normal. The brent, mediastinum, and bony thorax are unremarkable. Impression: Minor discoid atelectasis inferiorly on the left, otherwise negative PA and lateral chest. Signed by Vasile Olson MD 02/02/2017 08:20 A
[2017-02-02] MEDS: SUCRALFATE 1 GM TAB PO SCH ×4 (08:55→20:38)
[2017-02-02] MEDS: NICOTINE 14 MG/24 HR TRANSDERMAL TD SCH (08:55)
[2017-02-02] MEDS: PANTOPRAZOLE 40MG TAB (PROTONIX) PO SCH ×2 (08:55→20:38)
[2017-02-02] MEDS: SENOKOT S TAB PO SCH ×2 (08:55→20:38)
[2017-02-02] MEDS: VANCOMYCIN HCL 1,000 MG, VIAL MATE ADAPTER 1 EACH in D5W 250 ML IV SCH ×2 (08:55→16:20)
--- NOTE | 2017-02-02 11:45 | PHACANCOPD ---
PHARMACY VANCOMYCIN DOSING Pt Demographics Demographics Patient Age:36 , Weight:89.900 , Gender: female Adjusted Body Weight Date: 02/02/17, Adjusted Body Weight: [66.02] Kg Events Past 24 Hours Events Past 24 Hours: YES: Fever, Pending Diagnostics Vancomycin Vancomycin indication: renal abscess Vancomycin Target Ranges: 10-20 mcg/ml Vancomycin Load Y/N: No Load Dose Date Time Vancomycin Load Dose: Date: Time: Vancomycin Dose Date: 02/02/17. Current Vancomycin Dose: [1g IV Q8H] Intermittent Dosing?: No Labs Labs Item Value Date Time White Blood Count 6.4 K/mm3 02/02/17 0657 White Blood Count 5.8 K/mm3 02/01/17 0647 White Blood Count 8.2 K/mm3 01/31/17 0552 Creatinine 0.54 MG/DL L 02/02/17 0657 Creatinine 0.56 MG/DL 02/01/17 0647 Creatinine 0.53 MG/DL L 01/31/17 0552 C-Reactive Protein, Quantitative 10.40 MG/DL H 02/01/17 0647 C-Reactive Protein, Quantitative 11.50 MG/DL H 01/30/17 0536 Erythrocyte Sedimentation Rate 108 mm/hr H 02/01/17 0647 Micro Microbiology 01/31/17 Blood Culture - Preliminary, Resulted No growth after 24 hours . All specim... 01/31/17 Blood Culture - Preliminary, Resulted No growth after 24 hours . All specim... 01/29/17 Blood Culture - Preliminary, Resulted No Growth after 72 hours. All specime... 01/31/17 Fungal Smear, Received Pending 01/31/17 Fungal Culture, Received Pending 01/31/17 Urine Culture - Final, Complete 01/31/17 Anaerobic Culture, Received Pending 01/29/17 Urine Culture - Final, Complete 01/31/17 Gram Stain - Final, Resulted 01/31/17 Abscess Culture, Resulted Pending Creatinine Clearance Date:02/02/17. Estimated Creatinine Clearance: [>100ml/min]. Pending Labs Vancomycin trough scheduled 02/03/17 @1600, prior to the 5th dose Assessment and Plan Maintaining Current Dose?: Yes Reason for dose change: No Dose Change Pharmacist Note Pharmacist Note Date: 02/02/17. Pharmacist note: Day #1 vancomycin therapy initiated at 1g IV Q8H for the treatment of a renal abscess - aiming for a goal trough of 10-20mcg/ ml. WBC is currently WNL, ESR and CRP are both elevated, and the patient remains febrile. A urine culture drawn 01/27/17 at [facility] grew e coli sensitive to levaquin and rocephin, resistant to ampicillin and bactrim. No PMH of MRSA or vanco use here at [facility]. Repeat urine culture has resulted negative. Blood and renal abscess cultures are pending. A vancomycin trough has been scheduled 02/02/17 @1600, prior to the 5th dose. We will continue to monitor and make adjustments as needed. CRISTI [facility]OWER [facility] Feb 02, 2017 11:44
[2017-02-02] MEDS ORDERED: POTASSIUM CHLORIDE 10 MEQ SR TABLET PO ONE (12:00)
--- NOTE | 2017-02-02 12:47 | IPNPDOC ---
Subjective Date Seen The patient was seen on 02/02/17. Subjective Chief Complaint/HPI The patient is a 36-year-old female admitted with a reason for visit of Renal Abcess. Events since last encounter pt seen and examined, had overnight fevers and chills, she was also hypoxic. now pt states she feels better, but still feel pain in her back worse on the right. Objective Physical Examination General Exam: Positive: Alert, No Acute Distress Eye Exam: Positive: Conjunctiva & lids normal, EOMI, PERRLA, Negative: Sclera icteric ENT Exam: Positive: Atraumatic, Mucous membr. moist/pink, Pharynx Normal Chest Exam: Positive: Clear to auscultation, Normal air movement Heart Exam: Positive: Normal S1, Normal S2, Rate Normal, Regular Rhythm, Negative: Murmurs, Rubs Abdomen Exam: Positive: Other (right CVA tenderness , ), Tenderness Extremity Exam: Positive: Normal pulses, Negative: Clubbing, Cyanosis, Edema Skin Exam: Positive: Nl turgor and temperature, Negative: Breakdown, Rash Assessment /Plan Problems (1) Fever Status: Acute (2) Renal abscess Status: Acute Problem Text: * continue the patient on ceftriaxone, will add vanco since pt continues to spike fevers * urine culture from outside hospital grew e coli, repeat culture here was negative * Dr Gonzalez took pt for drainage and aspiration of abscess, cultures pending * continue morphine pump for pain control * will continue to monitor CRP and ESR * tmax 103.1 (3) History of Sonia-en-Y gastric bypass Status: Chronic Problem Text: * for morbid obesity * in 2009 at [place] * continue Carafate and protonix bid (4) Kidney stone on left side Status: Chronic (5) Hypothyroid Status: Chronic Problem Text: * continue Synthroid (6) Peptic ulcer disease Status: Chronic Problem Text: continue ppi and sucralfate (7) Hypoxia Status: Acute Problem Text: * will order xray * order IS Plan/VTE VTE Prophylaxis Ordered?: Yes VS, I&O, 24H, Fishbone Vital Signs/I&O Vital Signs Date Time Temp Pulse Resp B/P Pulse Ox O2 Delivery O2 Flow Rate FiO2 02/02/17 10:00 96.5 62 18 122/63 98 Room Air 02/02/17 06:00 2.0 I&O- Last 24 Hours up to 6 AM 3/30/17 06:00 Intake Total 3240 ml Output Total 1260 ml Balance 1980 ml Laboratory Data 24H LABS Laboratory Tests 2 02/02/17 06:57: Anion Gap 7L, White Blood Count 6.4, Red Blood Count 3.40L, Hemoglobin 8.9L, Hematocrit 29.4L, Mean Corpuscular Volume 86.5, Mean Corpuscular Hemoglobin 26.1L, Mean Corpuscular Hemoglobin Concent 30.1L, Red Cell Distribution Width 15.6H, Platelet Count 381, Neutrophils (%) (Auto) 69.5H, Lymphocytes (%) (Auto) 20.0L, Monocytes (%) (Auto) 6.8H, Eosinophils (%) (Auto) 1.3, Basophils (%) ( Auto) 0.4, Neutrophils # (Auto) 4.4, Lymphocytes # (Auto) 1.3L, Monocytes # ( Auto) 0.4, Eosinophils # (Auto) 0.1, Basophils # (Auto) 0.0, Blood Urea Nitrogen 4L, Creatinine 0.54L, Sodium Level 140, Potassium Level 3.2L, Chloride Level 104, Carbon Dioxide Level 29, Calcium Level 7.5L, Glomerular Filtration Rate > 60.0, Lactic Acid Level 0.8, Large Unclassified Cells # 0.1, Large Unclassified Cells % 2.0 CBC/BMP Laboratory Tests 02/02/17 06:57 Calcium Level 7.5 L, Red Blood Count 3.40 L, Mean Corpuscular Volume 86.5, Mean Corpuscular Hemoglobin 26.1 L, Mean Corpuscular Hemoglobin Concent 30.1 L, Red Cell Distribution Width 15.6 H, Neutrophils (%) (Auto) 69.5 H, Lymphocytes (%) ( Auto) 20.0 L, Monocytes (%) (Auto) 6.8 H, Eosinophils (%) (Auto) 1.3, Basophils (%) (Auto) 0.4, Neutrophils # (Auto) 4.4, Lymphocytes # (Auto) 1.3 L, Monocytes # (Auto) 0.4, Eosinophils # (Auto) 0.1, Basophils # (Auto) 0.0 Microbiology Microbiology 01/31/17 Blood Culture - Preliminary, Resulted No growth after 24 hours . All specim... 01/31/17 Blood Culture - Preliminary, Resulted No growth after 24 hours . All specim... 01/29/17 Blood Culture - Preliminary, Resulted No Growth after 72 hours. All specime... 01/31/17 Fungal Smear, Received Pending 01/31/17 Fungal Culture, Received Pending 01/31/17 Urine Culture - Final, Complete 01/31/17 Anaerobic Culture, Received Pending 01/29/17 Urine Culture - Final, Complete 01/31/17 Gram Stain - Final, Resulted 01/31/17 Abscess Culture - Preliminary, Resulted Escherichia Coli MIREYA BEASLEY DO Feb 02, 2017 12:47
[2017-02-02 12:48] LABS: MAGNESIUM LEVEL 1.9 MG/DL (1.8-2.4)
[2017-02-03] VITALS (12 sets, daily range): BP systolic 94–144; BP diastolic 52–75
[2017-02-03] MEDS: VANCOMYCIN HCL 1,000 MG, VIAL MATE ADAPTER 1 EACH in D5W 250 ML IV SCH ×2 (00:53→09:45)
[2017-02-03] MEDS: NS 1,000 ML IV SCH ×2 (03:05→09:46)
[2017-02-03] MEDS: LEVOTHYROXINE 0.05 MG TAB (50 MCG) PO SCH (05:52)
[2017-02-03 06:57] LABS: BASO % 0.4 % (0.0-1.0); EOS # 0.1 K/mm3 (0.0-0.50); LARGE UNSTAINED CELL # 0.3 K/mm3 (0.0-0.4); LYMPH # 1.7 K/mm3 (1.5-4.5); LYMPH % 29.4 % (24.0-44.0); MEAN CORPUSCULAR HEMOGLOBIN 26.8 pg (27.0-33.0); MEAN CORPUSCULAR HGB CONC 31.1 g/dl (32.0-36.5); MEAN CORPUSCULAR VOLUME 86.2 fl (80.0-96.0); MONO # 0.4 K/mm3 (0.0-0.8); MONO % 7.8 % (0.0-5.0); NEUTROPHILS # 2.7 K/mm3 (1.8-7.7); NEUTROPHILS % 55.3 % (36.0-66.0); PLATELET COUNT, AUTOMATED 326 k/mm3 (150-450); RED CELL DISTRIBUTION WIDTH 15.9 % (11.5-14.5); WHITE BLOOD COUNT 4.9 K/mm3 (4.0-10.0)
[2017-02-03 07:14] LABS: ANION GAP 5 MEQ/L (8-16); BLOOD UREA NITROGEN 4 MG/DL (7-18); CALCIUM LEVEL 7.5 MG/DL (8.5-10.1); CARBON DIOXIDE LEVEL 29 MEQ/L (21-32); CHLORIDE LEVEL 106 MEQ/L (98-107); CREATININE FOR GFR 0.43 MG/DL (0.55-1.02); GLOMERULAR FILTRATION RATE > 60.0 (>60); GLUCOSE, FASTING 82 MG/DL (70-105); POTASSIUM SERUM 3.5 MEQ/L (3.5-5.1); SODIUM LEVEL 140 MEQ/L (136-145)
[2017-02-03 07:21] LABS: ERYTHROCYTE SEDIMENTATION RATE 89 mm/hr (0-20)
[2017-02-03] MEDS: MORPHINE PCA 1MG/ML 100ML CADD IV PRN (07:53)
[2017-02-03] MEDS: PANTOPRAZOLE 40MG TAB (PROTONIX) PO SCH ×2 (09:44→20:38)
[2017-02-03] MEDS: SENOKOT S TAB PO SCH ×2 (09:44→20:38)
[2017-02-03] MEDS: SUCRALFATE 1 GM TAB PO SCH ×4 (09:45→20:38)
[2017-02-03] MEDS: NICOTINE 14 MG/24 HR TRANSDERMAL TD SCH (09:46)
--- NOTE | 2017-02-03 12:05 | IPNPDOC ---
Subjective Date Seen The patient was seen on 02/03/17. Subjective Chief Complaint/HPI The patient is a 36-year-old female admitted with a reason for visit of Renal Abcess. Events since last encounter pt seen and examined, had low grade temp of 100.7 overnight. still having pain over her back, still using morphine pump Constitutional: Reports: Chills, Fever Genitourinary: Reports: Other Symptoms (flank pain) Objective Physical Examination General Exam: Positive: Alert, No Acute Distress Eye Exam: Positive: Conjunctiva & lids normal, EOMI, PERRLA, Negative: Sclera icteric ENT Exam: Positive: Atraumatic, Mucous membr. moist/pink, Pharynx Normal Chest Exam: Positive: Clear to auscultation, Normal air movement Heart Exam: Positive: Normal S1, Normal S2, Rate Normal, Regular Rhythm, Negative: Murmurs, Rubs Abdomen Exam: Positive: Other (right CVA tenderness , ), Tenderness Extremity Exam: Positive: Normal pulses, Negative: Clubbing, Cyanosis, Edema Skin Exam: Positive: Nl turgor and temperature, Negative: Breakdown, Rash Assessment /Plan Problems (1) Fever Status: Acute Problem Text: * abscess culture from 01/31 was positive for Ecoli sensitive to ceftriaxone which pt has been on * will d/c vanco (2) Renal abscess Status: Acute Problem Text: * continue the patient on ceftriaxone, * urine culture from outside hospital grew e coli, repeat culture here was negative * abscess was positive for ecoli sensitive to ceftriaxone * will d/c vanco * will continue to trend SED rate and CRP (3) History of Sonia-en-Y gastric bypass Status: Chronic Problem Text: * for morbid obesity * in 2009 at [place] * continue Carafate and protonix bid (4) Kidney stone on left side Status: Chronic (5) Hypothyroid Status: Chronic Problem Text: * continue Synthroid (6) Peptic ulcer disease Status: Chronic Problem Text: continue ppi and sucralfate (7) Hypoxia Status: Resolved Problem Text: * xray showed atelectasis * order IS (8) Anemia Status: Chronic Response to Treatment: Worse Problem Text: * pt came in with low Hg of 8.2 today it is 7.8 * will order iron studies * fecal occult blood * repeat H&H * tranfuse if continues to trend down or if symptomatic Plan/VTE VTE Prophylaxis Ordered?: Yes VS, [facility]O, [facility] Vital Signs Date Time Temp Pulse Resp B/P Pulse Ox O2 Delivery O2 Flow Rate FiO2 02/03/17 06:00 97.4 74 16 94/52 95 Nasal Cannula 2.0 I&O- Last 24 Hours up to 6 AM 02/03/17 05:59 Intake Total 3370 ml Output Total 1375 ml Balance 1995 ml Laboratory Data 24H LABS Laboratory Tests 2 02/03/17 06:32: Anion Gap 5L, White Blood Count 4.9, Red Blood Count 2.90L, Hemoglobin 7.8L, Hematocrit 25.0L, Mean Corpuscular Volume 86.2, Mean Corpuscular Hemoglobin 26.8L, Mean Corpuscular Hemoglobin Concent 31.1L, Red Cell Distribution Width 15.9H, Platelet Count 326, Neutrophils (%) (Auto) 55.3, Lymphocytes (%) (Auto) 29.4, Monocytes (%) (Auto) 7.8H, Eosinophils (%) (Auto) 2.0, Basophils (%) (Auto ) 0.4, Neutrophils # (Auto) 2.7, Lymphocytes # (Auto) 1.7, Monocytes # (Auto) 0.4, Eosinophils # (Auto) 0.1, Basophils # (Auto) 0.0, C-Reactive Protein, Quantitative 5.90H, Blood Urea Nitrogen 4L, Creatinine 0.43L, Sodium Level 140, Potassium Level 3.5, Chloride Level 106, Carbon Dioxide Level 29, Calcium Level 7.5L, Erythrocyte Sedimentation Rate 89H, Glomerular Filtration Rate > 60.0, Large Unclassified Cells # 0.3, Large Unclassified Cells % 5.0H CBC/BMP Laboratory Tests 02/03/17 06:32 Calcium Level 7.5 L, Red Blood Count 2.90 L, Mean Corpuscular Volume 86.2, Mean Corpuscular Hemoglobin 26.8 L, Mean Corpuscular Hemoglobin Concent 31.1 L, Red Cell Distribution Width 15.9 H, Neutrophils (%) (Auto) 55.3, Lymphocytes (%) ( Auto) 29.4, Monocytes (%) (Auto) 7.8 H, Eosinophils (%) (Auto) 2.0, Basophils (% ) (Auto) 0.4, Neutrophils # (Auto) 2.7, Lymphocytes # (Auto) 1.7, Monocytes # ( Auto) 0.4, Eosinophils # (Auto) 0.1, Basophils # (Auto) 0.0 Microbiology Microbiology 01/31/17 Blood Culture - Preliminary, Resulted No Growth after 48 hours. All Specime... 01/31/17 Blood Culture - Preliminary, Resulted No Growth after 48 hours. All Specime... 01/29/17 Blood Culture - Final, Complete NO GROWTH AFTER 5 DAYS 01/31/17 Fungal Smear, Received Pending 01/31/17 Fungal Culture, Received Pending 01/31/17 Urine Culture - Final, Complete 01/31/17 Anaerobic Culture - Final, Complete 01/29/17 Urine Culture - Final, Complete 01/31/17 Gram Stain - Final, Complete 01/31/17 Abscess Culture - Final, Complete Escherichia Coli MIREYA BEASLEY DO Feb 03, 2017 12:05
[2017-02-03] MEDS: cefTRIAXone SOD 1 GM in D5W MINI-BAG PLUS 50 ML IV SCH ×2 (12:42→23:31)
[2017-02-03 12:58] LABS: PERCENT SATURATION 3.6 % (13.2-37.4)
[2017-02-03] MEDS: ACETAMINOPHEN 500 MG TAB PO PRN (20:38)
[2017-02-04] VITALS (8 sets, daily range): BP systolic 100–136; BP diastolic 54–86
[2017-02-04 00:06] LABS: IgG SERUM (part of Subclasses) 835 mg/dL (700-1600); IgG Subclass 1 480 mg/dL (422-1292); IgG Subclass 2 156 mg/dL (117-747); IgG Subclass 3 163 mg/dL (41-129); IgG Subclass 4 4 mg/dL (1-291)
[2017-02-04] MEDS: LEVOTHYROXINE 0.05 MG TAB (50 MCG) PO SCH (05:30)
[2017-02-04 06:33] LABS: WHITE BLOOD COUNT 4.6 K/mm3 (4.0-10.0)
[2017-02-04 06:34] LABS: BASO % 1.2 % (0.0-1.0); EOS % 2.9 % (0.0-3.0); LYMPH % 31.8 % (24.0-44.0); MEAN CORPUSCULAR HEMOGLOBIN 27.2 pg (27.0-33.0); MEAN CORPUSCULAR HGB CONC 32.3 g/dl (32.0-36.5); MONO % 7.4 % (0.0-5.0); NEUTROPHILS % 52.6 % (36.0-66.0); PLATELET COUNT, AUTOMATED 346 k/mm3 (150-450); RED CELL DISTRIBUTION WIDTH 15.9 % (11.5-14.5)
[2017-02-04 06:35] LABS: BASO # 0.1 K/mm3 (0.0-0.2); EOS # 0.1 K/mm3 (0.0-0.50); LARGE UNSTAINED CELL # 0.2 K/mm3 (0.0-0.4); LYMPH # 1.5 K/mm3 (1.5-4.5); MONO # 0.3 K/mm3 (0.0-0.8); NEUTROPHILS # 2.4 K/mm3 (1.8-7.7)
[2017-02-04 06:39] LABS: ANION GAP 7 MEQ/L (8-16); BLOOD UREA NITROGEN 4 MG/DL (7-18); CALCIUM LEVEL 7.9 MG/DL (8.5-10.1); CARBON DIOXIDE LEVEL 30 MEQ/L (21-32); CHLORIDE LEVEL 106 MEQ/L (98-107); CREATININE FOR GFR 0.46 MG/DL (0.55-1.02); GLOMERULAR FILTRATION RATE > 60.0 (>60); GLUCOSE, FASTING 85 MG/DL (70-105); POTASSIUM SERUM 3.8 MEQ/L (3.5-5.1); SODIUM LEVEL 143 MEQ/L (136-145)
[2017-02-04] MEDS: NICOTINE 14 MG/24 HR TRANSDERMAL TD SCH (10:15)
[2017-02-04] MEDS: SUCRALFATE 1 GM TAB PO SCH ×4 (10:16→20:39)
[2017-02-04] MEDS: SENOKOT S TAB PO SCH ×2 (10:16→20:39)
[2017-02-04] MEDS: PANTOPRAZOLE 40MG TAB (PROTONIX) PO SCH ×2 (10:16→20:39)
--- NOTE | 2017-02-04 11:20 | ECHO ---
DATE OF PROCEDURE: 02/03/2017 REFERRING PHYSICIAN: Bret Johnson MD PATIENT LOCATION: Room 4222 REASON FOR ECHOCARDIOGRAM: Heart murmur. 2D MEASUREMENTS: IVS: 0.9 cm LV: 5.6 cm LVPW: 0.9 cm LA: 4.0 cm Aorta: 3.0 cm IVC: 2.0 cm DOPPLER MEASUREMENTS: Peak velocity across the aortic valve: 1.6 m/s Peak velocity across the LVOT: 1.0 m/s Peak gradient across the aortic valve: 10.6 mmHg Mean gradient across the aortic valve: 7 mmHg Mitral E: 1.2, Mitral A: 0.63, with a ratio of 1. Maximum tricuspid valve velocity: 2.1 m/s 2D COMMENTS: 1. Borderline enlarged left ventricle with normal left ventricular wall thickness and a normal global left ventricular systolic function estimated at 60% to 65%. 2. Borderline enlarged left atrium at 4.0 cm. Normal right atrium and right ventricle. 3. The atrial septum appeared to be normal without evidence of defect or shunt. 4. Normal aortic root. 5. Trace pericardial effusion noted on only posteriorly at the base of the left ventricle in limited views. 6. Minimally calcified aortic valve with normal leaflet excursion. Normal mitral valve, tricuspid valve and pulmonic valve. The proximal pulmonary artery branches also appeared to be normal. 7. The inferior vena cava was borderline enlarged. DOPPLER: It detects trace to mild mitral regurgitation, trace to mild tricuspid regurgitation, and trace pulmonic regurgitation. The calculated pulmonary artery systolic pressure was normal. IMPRESSION: 1. Normal global left ventricular systolic function with borderline enlarged left ventricle and normal left ventricular wall thickness. Left ventricular diastolic function was normal. 2. Borderline enlarged left atrium with trace to mild mitral regurgitation. 3. Aortic valve sclerosis with trace aortic regurgitation, but no significant aortic stenosis. 4. Trace to mild tricuspid regurgitation with a normal calculated pulmonary artery systolic pressure. 5. Trace pulmonic regurgitation. 6. Trace pericardial effusion noted only posteriorly at the base of the left ventricle in limited views.
[2017-02-04] MEDS: cefTRIAXone SOD 1 GM in D5W MINI-BAG PLUS 50 ML IV SCH ×2 (11:54→23:08)
--- NOTE | 2017-02-04 14:07 | IPNPDOC ---
Subjective Date Seen The patient was seen on 02/04/17. Subjective Chief Complaint/HPI The patient is a 36-year-old female admitted with a reason for visit of Renal Abcess. Events since last encounter pt seen and examined, doing well, no other events overnight Objective Physical Examination General Exam: Positive: Alert, No Acute Distress Eye Exam: Positive: Conjunctiva & lids normal, EOMI, PERRLA, Negative: Sclera icteric ENT Exam: Positive: Atraumatic, Mucous membr. moist/pink, Pharynx Normal Chest Exam: Positive: Clear to auscultation, Normal air movement Heart Exam: Positive: Murmurs, Normal S1, Normal S2, Rate Normal, Regular Rhythm, Negative: Rubs Abdomen Exam: Positive: Other (right CVA tenderness , ), Tenderness Extremity Exam: Positive: Normal pulses, Negative: Clubbing, Cyanosis, Edema Skin Exam: Positive: Nl turgor and temperature, Negative: Breakdown, Rash Assessment /Plan Problems (1) Fever Status: Resolved Problem Text: * abscess culture from 01/31 was positive for Ecoli sensitive to ceftriaxone which pt has been on since 01/29/17 (2) Renal abscess Status: Acute Problem Text: * continue the patient on ceftriaxone, * urine culture from outside hospital grew e coli, repeat culture here was negative * abscess was positive for ecoli sensitive to ceftriaxone * will start pt on long acting pain medication (3) History of Sonia-en-Y gastric bypass Status: Chronic Problem Text: * for morbid obesity * in 2009 at [place] * continue Carafate and protonix bid (4) Kidney stone on left side Status: Chronic (5) Hypothyroid Status: Chronic Problem Text: * continue Synthroid (6) Peptic ulcer disease Status: Chronic Problem Text: continue ppi and sucralfate (7) Hypoxia Status: Resolved Problem Text: * xray showed atelectasis * order IS (8) Anemia Status: Chronic Response to Treatment: Worse Problem Text: * pt came in with chronic anemia, likely went down due to dilutional effect * s/p 2 units of prbc (9) Systolic murmur Status: Acute Problem Text: * minimal aortic regur Plan/VTE VTE Prophylaxis Ordered?: Yes VS, I&O, 24H, Fishbone Vital Signs/I&O Vital Signs Date Time Temp Pulse Resp B/P Pulse Ox O2 Delivery O2 Flow Rate FiO2 02/04/17 10:00 98.5 89 18 136/74 98 Room Air 02/04/17 06:00 2.0 I&O- Last 24 Hours up to 6 AM 02/04/17 06:00 Intake Total 2690 ml Output Total 3750 ml Balance -1060 ml Laboratory Data 24H LABS Laboratory Tests 2 02/04/17 05:58: Anion Gap 7L, White Blood Count 4.6, Red Blood Count 3.77L, Hemoglobin 10.2#L, Hematocrit 31.7L, Mean Corpuscular Volume 84.0, Mean Corpuscular Hemoglobin 27.2 , Mean Corpuscular Hemoglobin Concent 32.3, Red Cell Distribution Width 15.9H, Platelet Count 346, Neutrophils (%) (Auto) 52.6, Lymphocytes (%) (Auto) 31.8, Monocytes (%) (Auto) 7.4H, Eosinophils (%) (Auto) 2.9, Basophils (%) (Auto) 1.2H , Neutrophils # (Auto) 2.4, Lymphocytes # (Auto) 1.5, Monocytes # (Auto) 0.3, Eosinophils # (Auto) 0.1, Basophils # (Auto) 0.1, Blood Urea Nitrogen 4L, Creatinine 0.46L, Sodium Level 143, Potassium Level 3.8, Chloride Level 106, Carbon Dioxide Level 30, Calcium Level 7.9L, Glomerular Filtration Rate > 60.0, Large Unclassified Cells # 0.2, Large Unclassified Cells % 4.0 CBC/BMP Laboratory Tests 02/04/17 05:58 Calcium Level 7.9 L, Red Blood Count 3.77 L, Mean Corpuscular Volume 84.0, Mean Corpuscular Hemoglobin 27.2, Mean Corpuscular Hemoglobin Concent 32.3, Red Cell Distribution Width 15.9 H, Neutrophils (%) (Auto) 52.6, Lymphocytes (%) (Auto) 31.8, Monocytes (%) (Auto) 7.4 H, Eosinophils (%) (Auto) 2.9, Basophils (%) ( Auto) 1.2 H, Neutrophils # (Auto) 2.4, Lymphocytes # (Auto) 1.5, Monocytes # ( Auto) 0.3, Eosinophils # (Auto) 0.1, Basophils # (Auto) 0.1 Microbiology Microbiology 01/31/17 Blood Culture - Preliminary, Resulted No Growth after 72 hours. All specime... 01/31/17 Blood Culture - Preliminary, Resulted No Growth after 72 hours. All specime... 01/29/17 Blood Culture - Final, Complete NO GROWTH AFTER 5 DAYS 01/31/17 Fungal Smear, Received Pending 01/31/17 Fungal Culture, Received Pending 02/03/17 Stool Occult Blood ([email or web address]) - Final, Complete 01/31/17 Urine Culture - Final, Complete 01/31/17 Anaerobic Culture - Final, Complete 01/29/17 Urine Culture - Final, Complete 01/31/17 Gram Stain - Final, Complete 01/31/17 Abscess Culture - Final, Complete Escherichia Coli MIREYA BEASLEY DO Feb 04, 2017 14:07
[2017-02-04] MEDS: PERCOCET 5MG/325MG TAB PO PRN ×2 (14:23→16:28)
[2017-02-04] MEDS: oxyCODONE 10 MG CR TAB PO SCH ×2 (14:26→20:40)
[2017-02-05] MEDS: LEVOTHYROXINE 0.05 MG TAB (50 MCG) PO SCH (04:45)
[2017-02-05] MEDS: PERCOCET 5MG/325MG TAB PO PRN ×4 (04:46→22:51)
[2017-02-05 06:00] VITALS: BP 128/77
[2017-02-05 06:06] LABS: BASO % 0.7 % (0.0-1.0); EOS # 0.1 K/mm3 (0.0-0.50); EOS % 2.5 % (0.0-3.0); LARGE UNSTAINED CELL # 0.1 K/mm3 (0.0-0.4); LARGE UNSTAINED CELL % 2.7 % (0.0-4.0); LYMPH # 1.5 K/mm3 (1.5-4.5); LYMPH % 29.3 % (24.0-44.0); MEAN CORPUSCULAR HEMOGLOBIN 25.8 pg (27.0-33.0); MEAN CORPUSCULAR HGB CONC 30.6 g/dl (32.0-36.5); MEAN CORPUSCULAR VOLUME 84.3 fl (80.0-96.0); MONO # 0.4 K/mm3 (0.0-0.8); MONO % 7.8 % (0.0-5.0); NEUTROPHILS # 2.8 K/mm3 (1.8-7.7); NEUTROPHILS % 57.1 % (36.0-66.0); PLATELET COUNT, AUTOMATED 375 k/mm3 (150-450); RED CELL DISTRIBUTION WIDTH 15.9 % (11.5-14.5); WHITE BLOOD COUNT 4.9 K/mm3 (4.0-10.0)
[2017-02-05 06:18] LABS: ANION GAP 7 MEQ/L (8-16); BLOOD UREA NITROGEN 4 MG/DL (7-18); CALCIUM LEVEL 7.7 MG/DL (8.5-10.1); CARBON DIOXIDE LEVEL 30 MEQ/L (21-32); CHLORIDE LEVEL 104 MEQ/L (98-107); CREATININE FOR GFR 0.48 MG/DL (0.55-1.02); GLOMERULAR FILTRATION RATE > 60.0 (>60); GLUCOSE, FASTING 89 MG/DL (70-105); POTASSIUM SERUM 3.4 MEQ/L (3.5-5.1); SODIUM LEVEL 141 MEQ/L (136-145)
[2017-02-05] MEDS: NICOTINE 14 MG/24 HR TRANSDERMAL TD SCH (10:13)
[2017-02-05] MEDS: PANTOPRAZOLE 40MG TAB (PROTONIX) PO SCH ×2 (10:14→20:56)
[2017-02-05] MEDS: SENOKOT S TAB PO SCH ×2 (10:14→20:56)
[2017-02-05] MEDS: oxyCODONE 10 MG CR TAB PO SCH ×2 (10:14→20:56)
[2017-02-05] MEDS: SUCRALFATE 1 GM TAB PO SCH ×4 (10:15→20:56)
[2017-02-05] MEDS ORDERED: POTASSIUM CHLORIDE 10 MEQ SR TABLET PO ONE (10:45)
--- NOTE | 2017-02-05 11:03 | IPNPDOC ---
Subjective Date Seen The patient was seen on 02/05/17. Subjective Chief Complaint/HPI The patient is a 36-year-old female admitted with a reason for visit of Renal Abcess. Events since last encounter pt seen and examined, pain is somewhat controlled with oral pain medication, still has pain when she moves, drain has no output, no overnight fevers, but pt is complaining of chills, no nausea or vomiting tolerating diet. Objective Physical Examination General Exam: Positive: Alert, No Acute Distress Eye Exam: Positive: Conjunctiva & lids normal, EOMI, PERRLA, Negative: Sclera icteric ENT Exam: Positive: Atraumatic, Mucous membr. moist/pink, Pharynx Normal Chest Exam: Positive: Clear to auscultation, Normal air movement Heart Exam: Positive: Murmurs, Normal S1, Normal S2, Rate Normal, Regular Rhythm, Negative: Rubs Abdomen Exam: Positive: Other (right CVA tenderness , drain placed on the right ), Tenderness Extremity Exam: Positive: Normal pulses, Negative: Clubbing, Cyanosis, Edema Skin Exam: Positive: Nl turgor and temperature, Negative: Breakdown, Rash Assessment /Plan Problems (1) Renal abscess Status: Acute Problem Text: * continue the patient on ceftriaxone, started on 01/29 Day number 8 today * urine culture from outside hospital grew e coli, repeat culture here was negative * abscess was positive for ecoli sensitive to ceftriaxone * right sided drain still in place no output since 02/01, will contact Dr Gonzalez tomorrow regarding removing drain prior to discharge (2) Anemia Status: Chronic Response to Treatment: Stable Problem Text: * iron is low will start pt on iron supplements * pt came in with chronic anemia, likely went down due to dilutional effect * s/p 2 units of prbc on 02/03 (3) Fever Status: Resolved Problem Text: * abscess culture from 01/31 was positive for Ecoli sensitive to ceftriaxone which pt has been on since 01/29/17 (4) History of Sonia-en-Y gastric bypass Status: Chronic Problem Text: * for morbid obesity * in 2009 at [place] * continue Carafate and protonix bid (5) Kidney stone on left side Status: Chronic (6) Hypothyroid Status: Chronic Problem Text: * continue Synthroid (7) Peptic ulcer disease Status: Chronic Problem Text: continue ppi and sucralfate (8) Hypoxia Status: Resolved Problem Text: * xray showed atelectasis * order IS (9) Systolic murmur Status: Acute Problem Text: * minimal aortic regur (10) Hypokalemia Status: Acute Problem Text: * will replace and recheck in am * will order mag level in am Plan/VTE VTE Prophylaxis Ordered?: Yes VS, I&O, 24H, Fishbone Vital Signs/I&O Vital Signs Date Time Temp Pulse Resp B/P Pulse Ox O2 Delivery O2 Flow Rate FiO2 02/05/17 10:14 16 02/05/17 06:00 98.2 71 128/77 92 Room Air 02/04/17 06:00 2.0 I&O- Last 24 Hours up to 6 AM 02/05/17 06:00 Intake Total 2690 ml Output Total 1850 ml Balance 840 ml Laboratory Data 24H LABS Laboratory Tests 2 02/05/17 05:46: Anion Gap 7L, White Blood Count 4.9, Red Blood Count 3.69L, Hemoglobin 9.5L, Hematocrit 31.1L, Mean Corpuscular Volume 84.3, Mean Corpuscular Hemoglobin 25.8L, Mean Corpuscular Hemoglobin Concent 30.6L, Red Cell Distribution Width 15.9H, Platelet Count 375, Neutrophils (%) (Auto) 57.1, Lymphocytes (%) (Auto) 29.3, Monocytes (%) (Auto) 7.8H, Eosinophils (%) (Auto) 2.5, Basophils (%) (Auto ) 0.7, Neutrophils # (Auto) 2.8, Lymphocytes # (Auto) 1.5, Monocytes # (Auto) 0.4, Eosinophils # (Auto) 0.1, Basophils # (Auto) 0.0, Blood Urea Nitrogen 4L, Creatinine 0.48L, Sodium Level 141, Potassium Level 3.4L, Chloride Level 104, Carbon Dioxide Level 30, Calcium Level 7.7L, Glomerular Filtration Rate > 60.0, Large Unclassified Cells # 0.1, Large Unclassified Cells % 2.7 CBC/BMP Laboratory Tests 02/05/17 05:46 Calcium Level 7.7 L, Red Blood Count 3.69 L, Mean Corpuscular Volume 84.3, Mean Corpuscular Hemoglobin 25.8 L, Mean Corpuscular Hemoglobin Concent 30.6 L, Red Cell Distribution Width 15.9 H, Neutrophils (%) (Auto) 57.1, Lymphocytes (%) ( Auto) 29.3, Monocytes (%) (Auto) 7.8 H, Eosinophils (%) (Auto) 2.5, Basophils (% ) (Auto) 0.7, Neutrophils # (Auto) 2.8, Lymphocytes # (Auto) 1.5, Monocytes # ( Auto) 0.4, Eosinophils # (Auto) 0.1, Basophils # (Auto) 0.0 Microbiology Microbiology 01/31/17 Blood Culture - Preliminary, Resulted No Growth after 72 hours. All specime... 01/31/17 Blood Culture - Preliminary, Resulted No Growth after 72 hours. All specime... 01/29/17 Blood Culture - Final, Complete NO GROWTH AFTER 5 DAYS 01/31/17 Fungal Smear, Received Pending 01/31/17 Fungal Culture, Received Pending 02/03/17 Stool Occult Blood ([email or web address]) - Final, Complete 01/31/17 Urine Culture - Final, Complete 01/31/17 Anaerobic Culture - Final, Complete 01/29/17 Urine Culture - Final, Complete 01/31/17 Gram Stain - Final, Complete 01/31/17 Abscess Culture - Final, Complete Escherichia Coli MIREYA BEASLEY DO Feb 05, 2017 11:03
[2017-02-05] MEDS: cefTRIAXone SOD 1 GM in D5W MINI-BAG PLUS 50 ML IV SCH ×2 (11:26→22:50)
[2017-02-05] MEDS: FERROUS SULFATE 325MG TAB PO SCH ×2 (11:26→20:56)
[2017-02-05 14:00] VITALS: BP 130/71
[2017-02-05 22:00] VITALS: BP 123/67
[2017-02-06] MEDS: LEVOTHYROXINE 0.05 MG TAB (50 MCG) PO SCH (05:23)
[2017-02-06] MEDS: PERCOCET 5MG/325MG TAB PO PRN ×3 (05:23→18:09)
[2017-02-06 05:55] LABS: MEAN CORPUSCULAR HEMOGLOBIN 25.8 pg (27.0-33.0); MEAN CORPUSCULAR VOLUME 85.8 fl (80.0-96.0); RED CELL DISTRIBUTION WIDTH 15.8 % (11.5-14.5); WHITE BLOOD COUNT 6.2 K/mm3 (4.0-10.0)
[2017-02-06 06:00] VITALS: BP 114/79
[2017-02-06 06:08] LABS: ALBUMIN 1.8 GM/DL (3.2-5.2); ALBUMIN/GLOBULIN RATIO 0.47 (1.00-1.93); ALKALINE PHOSPHATASE 115 U/L (45-117); ALT/SGPT 22 U/L (12-78); ANION GAP 6 MEQ/L (8-16); AST/SGOT 22 U/L (15-37); BILIRUBIN,TOTAL 0.2 MG/DL (0.2-1.0); BLOOD UREA NITROGEN 6 MG/DL (7-18); CALCIUM LEVEL 7.9 MG/DL (8.5-10.1); CARBON DIOXIDE LEVEL 31 MEQ/L (21-32); CHLORIDE LEVEL 106 MEQ/L (98-107); CREATININE FOR GFR 0.51 MG/DL (0.55-1.02); GLOMERULAR FILTRATION RATE > 60.0 (>60); GLUCOSE, FASTING 85 MG/DL (70-105); POTASSIUM SERUM 3.8 MEQ/L (3.5-5.1); SODIUM LEVEL 143 MEQ/L (136-145); TOTAL PROTEIN 5.6 GM/DL (6.4-8.2)
[2017-02-06] MEDS: NICOTINE 14 MG/24 HR TRANSDERMAL TD SCH (09:07)
[2017-02-06] MEDS: oxyCODONE 10 MG CR TAB PO SCH ×2 (09:08→20:08)
[2017-02-06] MEDS: SUCRALFATE 1 GM TAB PO SCH ×4 (09:08→20:08)
[2017-02-06] MEDS: FERROUS SULFATE 325MG TAB PO SCH ×2 (09:08→20:08)
[2017-02-06] MEDS: SENOKOT S TAB PO SCH ×2 (09:08→20:08)
[2017-02-06] MEDS: PANTOPRAZOLE 40MG TAB (PROTONIX) PO SCH ×2 (09:08→20:08)
[2017-02-06] MEDS: cefTRIAXone SOD 1 GM in D5W MINI-BAG PLUS 50 ML IV SCH (11:13)
[2017-02-06 14:00] VITALS: BP 117/70
[2017-02-06] MEDS ORDERED: MORPHINE 2 MG/ML 1ML SYRINGE IV ONE (14:45)
[2017-02-06] MEDS: LevoFLOXacin 750 MG TABLET PO SCH (16:29)
--- NOTE | 2017-02-06 19:03 | IPNPDOC ---
Subjective Date Seen The patient was seen on 02/06/17. Subjective Chief Complaint/HPI The patient is a 36-year-old female admitted with a reason for visit of Renal Abcess. Events since last encounter pt seen and examined, doing well, pain is somewhat controlled, no fevers or chills, no overnight events, no drainage from drain in back Objective Physical Examination General Exam: Positive: Alert, No Acute Distress Eye Exam: Positive: Conjunctiva & lids normal, EOMI, PERRLA, Negative: Sclera icteric ENT Exam: Positive: Atraumatic, Mucous membr. moist/pink, Pharynx Normal Chest Exam: Positive: Clear to auscultation, Normal air movement Heart Exam: Positive: Murmurs, Normal S1, Normal S2, Rate Normal, Regular Rhythm, Negative: Rubs Abdomen Exam: Positive: Other (right CVA tenderness , drain placed on the right ), Tenderness Extremity Exam: Positive: Normal pulses, Negative: Clubbing, Cyanosis, Edema Skin Exam: Positive: Nl turgor and temperature, Negative: Breakdown, Rash Assessment /Plan Problems (1) Renal abscess Status: Acute Problem Text: * ceftriaxone discontinued, started on Levaquin * urine culture from outside hospital grew e coli, repeat culture here was negative * abscess was positive for ecoli sensitive to Levaquin * drain will be removed by dr king today (2) Anemia Status: Chronic Response to Treatment: Stable Problem Text: * iron is low will start pt on iron supplements * pt came in with chronic anemia, likely went down due to dilutional effect * s/p 2 units of prbc on 02/03 (3) Fever Status: Resolved Problem Text: * abscess culture from 01/31 was positive for Ecoli sensitive to ceftriaxone which pt has been on since 01/29/17 (4) History of Sonia-en-Y gastric bypass Status: Chronic Problem Text: * for morbid obesity * in 2009 at [place] * continue Carafate and protonix bid (5) Kidney stone on left side Status: Chronic (6) Hypothyroid Status: Chronic Problem Text: * continue Synthroid (7) Peptic ulcer disease Status: Chronic Problem Text: continue ppi and sucralfate (8) Hypoxia Status: Resolved Problem Text: * xray showed atelectasis * order IS (9) Systolic murmur Status: Acute Problem Text: * minimal aortic regur (10) Hypokalemia Status: Resolved Plan/VTE VTE Prophylaxis Ordered?: Yes VS, I&O, 24H, Fishbone Vital Signs/I&O Vital Signs Date Time Temp Pulse Resp B/P Pulse Ox O2 Delivery O2 Flow Rate FiO2 02/06/17 18:48 16 02/06/17 14:00 99.0 58 117/70 97 Room Air 02/04/17 06:00 2.0 I&O- Last 24 Hours up to 6 AM 02/06/17 06:00 Intake Total 2520 ml Output Total 1350 ml Balance 1170 ml Laboratory Data 24H LABS Laboratory Tests 2 02/06/17 05:31: Blood Urea Nitrogen 6L, Creatinine 0.51L, Sodium Level 143, Potassium Level 3.8 , Chloride Level 106, Carbon Dioxide Level 31, Calcium Level 7.9L, Aspartate Amino Transf (AST/SGOT) 22, Alanine Aminotransferase (ALT/SGPT) 22, Alkaline Phosphatase 115, Total Bilirubin 0.2, Total Protein 5.6L, Albumin 1.8L, Albumin/ Globulin Ratio 0.47L, Anion Gap 6L, C-Reactive Protein, Quantitative 1.84H, Erythrocyte Sedimentation Rate 61H, Glomerular Filtration Rate > 60.0, Magnesium Level 2.0 CBC/BMP Laboratory Tests 02/06/17 05:31 Calcium Level 7.9 L, Aspartate Amino Transf (AST/SGOT) 22, Alanine Aminotransferase (ALT/SGPT) 22, Alkaline Phosphatase 115, Total Bilirubin 0.2, Total Protein 5.6 L, Albumin 1.8 L, Red Blood Count 3.79 L, Mean Corpuscular Volume 85.8, Mean Corpuscular Hemoglobin 25.8 L, Mean Corpuscular Hemoglobin Concent 30.0 L, Red Cell Distribution Width 15.8 H Microbiology Microbiology 01/31/17 Blood Culture - Final, Complete NO GROWTH AFTER 5 DAYS 01/31/17 Blood Culture - Final, Complete NO GROWTH AFTER 5 DAYS 01/29/17 Blood Culture - Final, Complete NO GROWTH AFTER 5 DAYS 01/31/17 Fungal Smear, Received Pending 01/31/17 Fungal Culture, Received Pending 02/03/17 Stool Occult Blood ([email or web address]) - Final, Complete 01/31/17 Urine Culture - Final, Complete 01/31/17 Anaerobic Culture - Final, Complete 01/29/17 Urine Culture - Final, Complete 01/31/17 Gram Stain - Final, Complete 01/31/17 Abscess Culture - Final, Complete Escherichia Coli MIREYA BEASLEY DO Feb 06, 2017 19:03
[2017-02-06 22:00] VITALS: BP 121/66
[2017-02-07] MEDS: PERCOCET 5MG/325MG TAB PO PRN (03:31)
[2017-02-07] MEDS: LEVOTHYROXINE 0.05 MG TAB (50 MCG) PO SCH (05:31)
[2017-02-07] MEDS: LevoFLOXacin 750 MG TABLET PO SCH (05:31)
[2017-02-07 06:00] VITALS: BP 113/54
[2017-02-07 07:02] LABS: MEAN CORPUSCULAR HEMOGLOBIN 26.4 pg (27.0-33.0); MEAN CORPUSCULAR HGB CONC 30.8 g/dl (32.0-36.5); MEAN CORPUSCULAR VOLUME 85.7 fl (80.0-96.0); RED CELL DISTRIBUTION WIDTH 15.9 % (11.5-14.5); WHITE BLOOD COUNT 5.5 K/mm3 (4.0-10.0)
[2017-02-07 07:28] LABS: ALBUMIN 1.8 GM/DL (3.2-5.2); ALBUMIN/GLOBULIN RATIO 0.47 (1.00-1.93); ALKALINE PHOSPHATASE 103 U/L (45-117); ALT/SGPT 19 U/L (12-78); ANION GAP 5 MEQ/L (8-16); AST/SGOT 21 U/L (15-37); BILIRUBIN,TOTAL 0.2 MG/DL (0.2-1.0); BLOOD UREA NITROGEN 5 MG/DL (7-18); CALCIUM LEVEL 8.2 MG/DL (8.5-10.1); CARBON DIOXIDE LEVEL 32 MEQ/L (21-32); CHLORIDE LEVEL 106 MEQ/L (98-107); CREATININE FOR GFR 0.55 MG/DL (0.55-1.02); GLOMERULAR FILTRATION RATE > 60.0 (>60); GLUCOSE, FASTING 82 MG/DL (70-105); POTASSIUM SERUM 3.9 MEQ/L (3.5-5.1); SODIUM LEVEL 143 MEQ/L (136-145); TOTAL PROTEIN 5.6 GM/DL (6.4-8.2)
[2017-02-07] MEDS: SENOKOT S TAB PO SCH (09:16)
[2017-02-07] MEDS: PANTOPRAZOLE 40MG TAB (PROTONIX) PO SCH (09:16)
[2017-02-07] MEDS: NICOTINE 14 MG/24 HR TRANSDERMAL TD SCH (09:16)
[2017-02-07] MEDS: FERROUS SULFATE 325MG TAB PO SCH (09:16)
[2017-02-07] MEDS: SUCRALFATE 1 GM TAB PO SCH (09:16)
[2017-02-07] MEDS: oxyCODONE 10 MG CR TAB PO SCH (09:17)
[2017-02-07] MEDS ORDERED: PERCOCET PO (10:21)
[2017-02-07] MEDS ORDERED: LEVA750T PO ×2 (10:21→13:28)
[2017-02-07] MEDS ORDERED: OXYC-299 PO ×2 (10:21→12:11)
[2017-02-07] MEDS ORDERED: OXYC1TAB23 PO (12:11)
--- NOTE | 2017-02-07 16:02 | DS.PDOC ---
Discharge Summary General Date of Admission Jan 29, 2017 at 11:10 Date of Discharge Feb 07, 2017 at 11:40 Attending Physician: KARRI CARLOS MD Specialist/Consultants Involve: Venus Monae MD Discharge Summary PROCEDURES PERFORMED DURING STAY: None. ADMITTING/DISCHARGE DIAGNOSES: 1. Renal abscess status post drain, and removal of drain. 2. History of obesity status post gastric bypass in 2009 3. History of peptic ulcer disease 4. Hypothyroidism 5. Tobacco abuse 6. History of nephrolithiasis COMPLICATIONS/CHIEF COMPLAINT: Renal Abcess. HISTORY OF PRESENT ILLNESS/HOSPITAL COURSE: . This is a 36-year-old female past medical history of nephrolithiasis who presents to [facility] on 4 right sided back/flank pain. Patient apparently has been sick with a past in a prior to admission and had believed that her pain was secondary to nephrolithiasis. Upon evaluation by a [facility], the patient was noted to have a possible renal abscess and was transferred to [facility] for urology evaluation. Patient had a urine culture was positive for Escherichia coli. Patient was also seen by Dr. Gonzalez interventional radiology and had a drainage catheter placed on 01/31, removed on 02/06. Patient had been on IV antibiotics for a total of 10 days on the hospital. The patient tolerated therapy well. I currently denies any complaints. States her pain is well-controlled on the OxyContin as well as the Percocet. Patient has been given one week this regimen, and is to follow-up with her primary care physician as well as Dr. Monae in 1-2 weeks. I have spoken to Dr. Monae, who wanted the patient to have a total of 20 days of antibiotics, as well as renal ultrasound to follow-up her treatment. I have spoken to the patient's primary care office who will be arranging the renal ultrasound to be done in 10 days. DISCHARGE MEDICATIONS: Please see below. ALLERGIES: Please see below. PHYSICAL EXAMINATION ON DISCHARGE: VITAL SIGNS: Please see below. General: No acute distress, laying comfortably in bed. HEENT: Moist mucous membranes. Neck: No JVD or lymphadenopathy Cardiac: RRR, No murmurs Pulm: Clear to auscultation b/l. No wheezing, rhonchi Abd: NT/ND + BS. No CVA tenderness. Ext: No edema or cyanosis LABORATORY DATA: Please see below. IMAGING: PROGNOSIS: Fair ACTIVITY: As tolerated. DIET: As tolerated DISCHARGE PLAN: Home DISPOSITION: 01 Home, Self-Care. DISCHARGE INSTRUCTIONS: 1. Follow-up with PCP and Dr. Monae in 1-2 weeks. Pt will have an additional 10 days levaquin. I have called the patient's primary care, who will be arranging for the patient to have a renal ultrasound in 10 days. DISCHARGE CONDITION: Stable. TIME SPENT ON DISCHARGE: Greater than 30 minutes. Vital Signs/I&Os Vital Signs Date Time Temp Pulse Resp B/P Pulse Ox O2 Delivery O2 Flow Rate FiO2 02/07/17 09:17 18 02/07/17 06:00 98.3 71 113/54 98 02/06/17 14:00 Room Air 02/04/17 06:00 2.0 I&O- Last 24 Hours up to 6 AM 02/07/17 05:59 Intake Total 2930 ml Output Total 650 ml Balance 2280 ml Laboratory Data Labs 24H Laboratory Tests 2 02/07/17 06:36: Blood Urea Nitrogen 5L, Creatinine 0.55, Sodium Level 143, Potassium Level 3.9, Chloride Level 106, Carbon Dioxide Level 32, Calcium Level 8.2L, Aspartate Amino Transf (AST/SGOT) 21, Alanine Aminotransferase (ALT/SGPT) 19, Alkaline Phosphatase 103, Total Bilirubin 0.2, Total Protein 5.6L, Albumin 1.8L, Albumin/ Globulin Ratio 0.47L, Anion Gap 5L, Glomerular Filtration Rate > 60.0, Magnesium Level 2.0 CBC/BMP Laboratory Tests 02/07/17 06:36 Calcium Level 8.2 L, Aspartate Amino Transf (AST/SGOT) 21, Alanine Aminotransferase (ALT/SGPT) 19, Alkaline Phosphatase 103, Total Bilirubin 0.2, Total Protein 5.6 L, Albumin 1.8 L, Red Blood Count 3.61 L, Mean Corpuscular Volume 85.7, Mean Corpuscular Hemoglobin 26.4 L, Mean Corpuscular Hemoglobin Concent 30.8 L, Red Cell Distribution Width 15.9 H Microbiology Microbiology 01/31/17 Blood Culture - Final, Complete NO GROWTH AFTER 5 DAYS 01/31/17 Blood Culture - Final, Complete NO GROWTH AFTER 5 DAYS 01/29/17 Blood Culture - Final, Complete NO GROWTH AFTER 5 DAYS 01/31/17 Fungal Smear, Received Pending 01/31/17 Fungal Culture, Received Pending 02/03/17 Stool Occult Blood ([email or web address]) - Final, Complete 01/31/17 Urine Culture - Final, Complete 01/31/17 Anaerobic Culture - Final, Complete 01/29/17 Urine Culture - Final, Complete 01/31/17 Gram Stain - Final, Complete 01/31/17 Abscess Culture - Final, Complete Escherichia Coli Discharge Medications Scheduled Docusate Sodium (Colace) 100 Mg Cap 100 MG PO BID (Reported) Ferrous Sulfate (Ferrous Sulfate) 324 Mg Tab 324 MG PO BID (Reported) HOME MED Levofloxacin Hemihydrate (Levaquin) 750 Mg Tab 750 MG PO DAILY Levothyroxine Sodium (Levoxyl) 50 Mcg Tab 50 MCG PO DAILY (Reported) HOME MED Nicotine (Nicotine 14MG Patch) 1 Patch Tdsy 1 PATCH TD DAILY (Reported) STARTED AT [facility] Oxycodone HCl (Oxycontin) 10 Mg Tab 10 MG PO BID Pantoprazole Sodium (Pantoprazole Sodium) 40 Mg Tab 40 MG PO BID (Reported) HOME MED Sucralfate (Sucralfate) 1 Gm Tab 1 GM PO QID (Reported) HOME MED Scheduled PRN Acetaminophen (Tylenol) 325 Mg Tab 650 MG PO Q6H PRN PRN PAIN / FEVER (Reported ) STARTED AT [facility] Oxycodone/Acetaminophen (Oxycodone/Acetaminophen 5-325 mg) 1 Tab Tab 1 TAB PO Q6HP PRN PRN pain Allergies Coded Allergies: No Known Allergies (Unverified , 01/29/17) KARRI CARLOS MD Feb 07, 2017 16:02
== END 2017-02-07 11:40 | disposition home or self-care (01) | DRG 443 ==
LOC: M MSPAV 11:10
PROVIDERS: ADMIT Internal Medicine Nephrology; ATTEND Internal Medicine
PROC: 0T9030Z Drainage of Right Kidney with Drainage Device, Percutaneous Approach (ICD-10-PCS; principal; 2017-01-31)
PROC: 0T903ZX Drainage of Right Kidney, Percutaneous Approach, Diagnostic (ICD-10-PCS; 2017-01-31)
DX: N15.1 Renal and perinephric abscess (principal); K27.9 Peptic ulcer, site unspecified, unspecified as acute or chronic, without hemorrhage or perforation; F17.210 Nicotine dependence, cigarettes, uncomplicated; D50.9 Iron deficiency anemia, unspecified; J98.11 Atelectasis; B96.20 Unspecified Escherichia coli [E. coli] as the cause of diseases classified elsewhere; E03.9 Hypothyroidism, unspecified; Z98.84 Bariatric surgery status; Z79.899 Other long term (current) drug therapy; R09.02 Hypoxemia; E87.6 Hypokalemia; Z87.442 Personal history of urinary calculi

== ENCOUNTER → 2017-02-13 | Outpatient (REF) | payer BC ==
[~2017-02-13] MED LIST: COLA100C3 PO; FERR324T2 PO; HYDR1SYR IV; LEVA750T PO; LEVO1INJ27 IV; LEVO50TA45 PO; NICO14DI20 TD; OXYC-299 PO; OXYC1TAB23 PO; PANT40TA2 PO; PERCOCET PO; POTA0.15 IV; SUCR1TAB56 PO; TYLE325T5 PO; [UNRECOGNIZED DRUG - CODE] IV
[2017-02-13 17:00] LABS: BASO # 0.1 K/mm3 (0.0-0.2); BASO % 0.6 % (0.0-1.0); EOS # 0.2 K/mm3 (0.0-0.50); EOS % 2.4 % (0.0-3.0); LARGE UNSTAINED CELL # 0.2 K/mm3 (0.0-0.4); LARGE UNSTAINED CELL % 1.7 % (0.0-4.0); LYMPH # 2.4 K/mm3 (1.5-4.5); MEAN CORPUSCULAR HEMOGLOBIN 26.7 pg (27.0-33.0); MEAN CORPUSCULAR HGB CONC 30.4 g/dl (32.0-36.5); MEAN CORPUSCULAR VOLUME 87.8 fl (80.0-96.0); MONO # 0.8 K/mm3 (0.0-0.8); MONO % 8.2 % (0.0-5.0); NEUTROPHILS # 5.9 K/mm3 (1.8-7.7); NEUTROPHILS % 63.1 % (36.0-66.0); PLATELET COUNT, AUTOMATED 378 k/mm3 (150-450); RED CELL DISTRIBUTION WIDTH 16.6 % (11.5-14.5); WHITE BLOOD COUNT 9.4 K/mm3 (4.0-10.0)
[2017-02-13 17:30] LABS: ANION GAP 9 MEQ/L (8-16); BLOOD UREA NITROGEN 5 MG/DL (7-18); CALCIUM LEVEL 8.9 MG/DL (8.5-10.1); CARBON DIOXIDE LEVEL 28 MEQ/L (21-32); CHLORIDE LEVEL 104 MEQ/L (98-107); CREATININE FOR GFR 0.66 MG/DL (0.55-1.02); GLOMERULAR FILTRATION RATE > 60.0 (>60); GLUCOSE, FASTING 76 MG/DL (70-105); SODIUM LEVEL 141 MEQ/L (136-145)
[2017-02-13 18:44] LABS: ERYTHROCYTE SEDIMENTATION RATE 49 mm/hr (0-20)
== END ==
LOC: M SFHCPLAZ 10:43
PROVIDERS: ATTEND Internal Medicine Infectious Disease
DX: N15.1 Renal and perinephric abscess (principal)